=== PATIENT | male | born 1970 | race Caucasian/White ===

== ENCOUNTER 2018-08-22 13:21 | Outpatient (CLI) | payer MEDICARE, MEDICAID | END 2018-08-22 13:22 | disposition home or self-care (01) | LOC: ULT 13:21 | PROVIDERS: ATTEND Family Medicine | DX: J44.9 Chronic obstructive pulmonary disease, unspecified (principal); R53.83 Other fatigue; I08.1 Rheumatic disorders of both mitral and tricuspid valves | CPT/HCPCS: 93306 ==

== ENCOUNTER 2018-10-09 12:59 | Outpatient (CLI) | payer MEDICARE, MEDICAID ==
--- NOTE | 2018-10-09 13:30 | RAD ---
Frontal and lateral imaging of the chest: 10/09/2018 COMPARISON: 09/10/2018 HISTORY: Short of breath FINDINGS: There are coarse linear interstitial densities noted bilaterally. The right lung appears hy perinflated. There is volume loss involving the left hemithorax. There is mild blunting of the left costophrenic angle. There is patchy opacity within the inferior medial left lung base, which appears similar when compare d to the prior examination. IMPRESSION: Increased linear interstitial density and pulmonary hyperinflation suggests COPD. There i s superimposed volume loss involving the left hemithorax with blunting of the left costophrenic angle suggesting probable scar or less likely, small volume pleural fluid. Question prior surgery or trauma involving the left hemithorax with associated volume loss.
== END 2018-10-09 13:00 | disposition home or self-care (01) ==
LOC: RAD 12:59
PROVIDERS: ATTEND Internal Medicine Pulmonary Disease
DX: R06.00 Dyspnea, unspecified (principal); J98.4 Other disorders of lung
CPT/HCPCS: 71046

== ENCOUNTER 2019-04-25 18:54 | Inpatient (IN) | payer MEDICARE, MEDICAID ==
[2019-04-25] MEDS ORDERED: methylPREDNISolone Sod Succ/PF 125 MG/2 ML VIAL ONE (19:29)
[2019-04-25 19:39] LABS: #Eosinphils 0.1 thou/uL (0.0-0.7); #Lymphocytes 1.4 thou/uL (1.20-3.40); #Monocytes 0.8 thou/uL (0.11-0.59); #Neutrophils 8.4 thou/uL (1.40-6.50); %Basophils 0.2 % (0.0-1.0); %Eosinophils 0.8 % (0.0-10.0); %Lymphocytes 13.4 % (21.0-51.0); %Monocytes 7.4 % (0.0-10.0); %Neutrophils 78.3 % (42.0-75.0); Mean Platelet Volume 6.2 fL (7.4-10.4); Platelet Count 345 thou/uL (130-400); Red Blood Cell (RBC) Count 4.69 mill/uL (4.70-6.10); White Blood Cell (WBC) Count 10.7 thou/uL (4.8-10.8)
[2019-04-25 19:57] LABS: Bacteria/HPF None Seen HPF (None Seen); Bilirubin Negative (Negative); Blood, Urine Trace (Negative); Clarity Clear (Clear); Glucose, Urine (Dipstick) Normal (Negative); Leukocyte Negative Leu/uL (Negative); Mucous/LPF Rare LPF (<2+); Nitrite Negative (Negative); Protein, Urine (Dipstick) Negative (Neg-Trace); RBC/HPF 0-3 HPF (0-3); Squamous Epithelial None Seen HPF (0-3); Urobilinogen Normal mg/dL (Less than 2); WBC/HPF 0-3 HPF (0-3)
[2019-04-25 20:00] LABS: ALT (SGPT) 26 U/L (8-55); AST (SGOT) 24 U/L (5-34); Albumin 4.2 g/dL (3.5-5.0); Alkaline Phosphatase 91 U/L (40-110); BUN (Urea Nitrogen) 8 mg/dL (8.9-20.6); Bilirubin, Total 0.4 mg/dL (0.2-1.2); Calc. Creatinine Clearance 0 mL/min (70-130); Calcium 9.7 mg/dL (7.8-10.44); Estimated GFR-MDRD Greater than 90; Globulin 3.6 g/dL (2.4-3.5); Glucose 89 mg/dL (70-105); Magnesium 2.2 mg/dL (1.6-2.6); Protein, Total 7.8 g/dL (6.0-8.3)
--- NOTE | 2019-04-25 20:08 | RAD ---
FRONTAL RADIOGRAPH CHEST: 04/25/19 COMPARISON: 10/09/18 HISTORY: Shortness of breath. FINDINGS: Heart and mediastinal contours are stable. Increased linear interstitial density with pulmonary hyper inflation suggests COPD in the proper clinical setting, stable. Stable slight blunting of the left co stophrenic angle. Stable irregularity involving multiple lateral left sided ribs suggests old fractur es. IMPRESSION: Stable appearance of the chest as detailed above. Chest could be better assessed with PA and lateral imaging. POS: MAGALYS
[2019-04-25 20:13] LABS: Chloride 95 mmol/L (98-107); Potassium 4.6 mmol/L (3.5-5.1); Sodium 139 mmol/L (136-145)
[2019-04-25 20:16] LABS: Anion Gap 15 mmol/L (10-20); Carbon Dioxide 34 mmol/L (22-29)
[2019-04-25] MEDS ORDERED: Lactated Ringer's 1,000 ML IV SCH (23:30)
--- NOTE | 2019-04-26 00:39 | PDOC.FPRHP ---
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 He states at home he normally requires 3 L NC to sleep at night but had began requiring oxygen through the afternoon. Earlier this week started to with increased cough, green sputum production alerting him to be seen in the ED. He denies fevers. He is seen by Dr. Friend, last appt in October but is wanting to schedule an appt. He endorsed increased duoneb use, albuterol use. ED Course: In the ED pt was started on solumedrol, levaquin, and duonebs for a COPD exacerbation. CXR revealed chronic COPD changes, hyperinflation. BNP, trop negative. - Allergies/Adverse Reactions Allergies Allergy/AdvReac Type Severity Reaction Status Date / Time Penicillins Allergy Severe Verified 04/26/19 02:42 - Home Medications Medication Instructions Recorded Confirmed Type Albuterol Sulfate [Albuterol 8.5 gm IH 04/26/19 History Sulfate Hfa] Albuterol Sulfate [Ventolin Hfa] 2 puff INH Q4HR PRN 04/26/19 04/26/19 History Budesonide [Pulmicort Flexhaler] 2 puff INH BID 04/26/19 04/26/19 History Ipratropium/Albuterol Sulfate 3 ml NEB TID 04/26/19 04/26/19 History [Duoneb] Meloxicam 15 mg PO PRN PRN 04/26/19 04/26/19 History - History PMHx: L pneumonectomy in childhood, COPD, HLD PSHx: L pneumoenectomy, cholecystectomy, hernia repair FHx: non-contributory Social: history of 2 ppd smoking but states he quit 2 months ago, denies alcohol , drug use - Review of Systems General: denies: fever/chills, weight/appetite/sleep changes ENT: denies: nasal congestion, rhinorrhea Respiratory: reports: cough, congestion, shortness of breath Cardiovascular: denies: chest pain, palpitation Gastrointestinal: denies: nausea, vomiting, diarrhea, constipation Neurological: denies: numbness, syncope Psychological: denies: anxiety, depression - Vital signs BP: 140/106 HR: 106 RR: Tmax: 98.3 Pox: 81 % on RA Wt: 72.5 kg - Physical Exam Constitutional: NAD, awake, alert and oriented Neck: supple, FROM Heart: RRR, normal S1/S2, no murmurs/rubs/gallops -Lungs: Poor air movement, expiratory wheeze Abdomen: soft, non-tender Neurological: no focal deficit, CN II-XII intact Skin: no rash/lesions, good turgor, capillary refill <2 seconds Heme/Lymphatic: no purpura, no petechia Psychiatric: good judgment and insight FMR H&P: Results - Labs Result Diagrams: 04/26/19 05:29 04/26/19 05:29 Lab results: WBC 10.7 thou/uL (4.8-10.8) 04/25/19 19:25 Hgb 15.0 g/dL (14.0-18.0) 04/25/19 19:25 Hct 45.5 % (42.0-52.0) 04/25/19 19:25 MCV 97.0 fL (78.0-98.0) 04/25/19 19:25 Plt Count 345 thou/uL (130-400) 04/25/19 19:25 Neutrophils % 78.3 % (42.0-75.0) H 04/25/19 19:25 Sodium 139 mmol/L (136-145) 04/25/19 19:24 Potassium 4.6 mmol/L (3.5-5.1) 04/25/19 19:24 Chloride 95 mmol/L (98-107) L 04/25/19 19:24 Carbon Dioxide 34 mmol/L (22-29) H 04/25/19 19:24 BUN 8 mg/dL (8.9-20.6) L 04/25/19 19:24 Creatinine 0.77 mg/dL (0.7-1.3) 04/25/19 19:24 Glucose 89 mg/dL (70-105) 04/25/19 19:24 Lactic Acid 0.6 mmol/L (0.5-2.2) 04/25/19 19:25 Calcium 9.7 mg/dL (7.8-10.44) 04/25/19 19:24 Total Bilirubin 0.4 mg/dL (0.2-1.2) 04/25/19 19:24 AST 24 U/L (5-34) 04/25/19 19:24 ALT 26 U/L (8-55) 04/25/19 19:24 Alkaline Phosphatase 91 U/L (40-110) 04/25/19 19:24 B-Natriuretic Peptide Less than 10.0 pg/mL (0-100) 04/25/19 19:24 Serum Total Protein 7.8 g/dL (6.0-8.3) 04/25/19 19:24 Albumin 4.2 g/dL (3.5-5.0) 04/25/19 19:24 Urine Ketones Negative mg/dL (Negative) 04/25/19 19:37 Urine Blood Trace (Negative) A 04/25/19 19:37 Urine Nitrite Negative (Negative) 04/25/19 19:37 Ur Leukocyte Esterase Negative Jewel/uL (Negative) 04/25/19 19:37 Urine RBC 0-3 HPF (0-3) 04/25/19 19:37 Urine WBC 0-3 HPF (0-3) 04/25/19 19:37 Ur Squamous Epith Cells None Seen HPF (0-3) 04/25/19 19:37 Urine Bacteria None Seen HPF (None Seen) 04/25/19 19:37 - Radiology Interpretation Chest x-ray Status: image reviewed by me (Hyperinflation, no consolidations), report reviewed by me FMR H&P: A/P - Problem List (1) COPD exacerbation Current Visit: Yes Status: Acute Code(s): J44.1 - CHRONIC OBSTRUCTIVE PULMONARY DISEASE W (ACUTE) EXACERBATION (2) Hyperlipidemia Current Visit: Yes Status: Chronic Code(s): E78.5 - HYPERLIPIDEMIA, UNSPECIFIED (3) H/O pneumonectomy Current Visit: Yes Status: Chronic Code(s): Z98.890 - OTHER SPECIFIED POSTPROCEDURAL STATES; Z90.2 - ACQUIRED ABSENCE OF LUNG [PART OF] - Plan Pt is a 48 yo male here for COPD exacerbation: # COPD Exacerbation Hx of L pneumonectomy, previous COPD exacerbations. Followed by Dr. Friend. Pt should follow up on discharge. Given solumedrol in ED. Trop neg. BNP neg. - Start prednisone - Cont symbicort, duonebs - Cont levaquin # HLD - Continue home medication Fluids: LR 75 ml/hr Diet: HH DVT: Lovenox Code: Full Dispo: < 2 day stay FMR H&P: Upper Level - Plan Date/Time: 04/26/19 0035 IMoses MD, have evaluated this patient and agree with findings/plan as outlined by analysis intern resident. Pertinent changes/additions are listed here. Segundo Durán is a 48 year old M with a PMH of COPD, HLD who presented to the ED with a 2-3 day history of worsening dyspnea. States that he has had wheezing, productive cough and dyspnea. Last hospitalization for COPD was a couple years ago. Hx of left pneumonectomy when he was a child due to lung cancer. States that he his on O2 supplementation via NC at night normally. Has had In the ED, BP 142/95, HR 96, RR 18, T 97.6, O2 sat 96% on 3 L NC. Labs: D-dimer <0.27, WBC 10.7, Trop <0.01, BNP <10. Lactic acid 0.6. EKG showed NSR with short [place] interval, no ST changes. CXR showed increased linear interstitial density with pulmonary hyperinflation. Exam was significant for decrease air movement and bilateral expiratory wheezes. Admitting patient to inpatient medical for acute hypoxic respiratory failure 2/2 COPD exacerbation. Continue levaquin, duonebs, steroids. Continue O2 supplementation with goal of 92-94%, wean as tolerated. Anticipate hospital stay >48 hours. Please seen analysis intern note above for full H&P , which I have reviewed and agree with. Code status: Full Code.
[2019-04-26 01:18] VITALS: BMI 22.3
[2019-04-26] MEDS ORDERED: PROVENTIL INHALER 6.7 G (200 INHALATIONS) INH PRN (05:02)
[2019-04-26 05:53] LABS: #Lymphocytes 0.5 thou/uL (1.20-3.40); #Monocytes 0.1 thou/uL (0.11-0.59); #Neutrophils 4.8 thou/uL (1.40-6.50); %Basophils 0.1 % (0.0-1.0); %Eosinophils 0.1 % (0.0-10.0); %Lymphocytes 8.9 % (21.0-51.0); %Monocytes 1.5 % (0.0-10.0); %Neutrophils 89.5 % (42.0-75.0); Hemoglobin 13.9 g/dL (14.0-18.0); Mean Corpuscular HGB CONC 32.6 g/dL (32.0-36.0); Mean Corpuscular Hemoglobin 31.8 pg (27.0-31.0); Mean Corpuscular Volume 97.4 fL (78.0-98.0); Mean Platelet Volume 6.5 fL (7.4-10.4); Platelet Count 309 thou/uL (130-400); RBC Distribution Width 11.9 % (11.5-14.5); Red Blood Cell (RBC) Count 4.38 mill/uL (4.70-6.10); White Blood Cell (WBC) Count 5.3 thou/uL (4.8-10.8)
--- NOTE | 2019-04-26 05:59 | PDOC.FM ---
- Subjective Subjective: Pt reports a 2 week hx of worsening SOB and increased sputum production with his cough. Pt states his SOb is alleviated with nebulizer treatments and the steroids. C/o Pleuritic CP. - Objective MAR Reviewed: Yes Vital Signs & Weight: Vital Signs (12 hours) Temp Pulse Resp BP Pulse Ox 04/26/19 04:00 98.0 F 103 H 20 142/83 H 93 L 04/26/19 02:43 107 H 20 94 L 04/25/19 23:33 108 H 20 92 L 04/25/19 23:05 97.7 F 107 H 20 147/85 H 94 L 04/25/19 23:01 94 L Weight Weight 72.575 kg I&O: 04/24/19 04/25/19 04/26/19 06:59 06:59 06:59 Intake Total 1250 Output Total 700 Balance 550 Result Diagrams: 04/26/19 05:29 04/26/19 05:29 Phys Exam - Physical Examination Constitutional: NAD HEENT: PERRLA, moist MMs Neck: no nodes, no JVD Respiratory: wheezing present diminished breath sounds all lung silver. Good air movement on L-side. Cardiovascular: RRR, no significant murmur Gastrointestinal: soft, non-tender Musculoskeletal: no edema Neurological: non-focal, moves all 4 limbs Psychiatric: normal affect, A&O x 3 Skin: no rash, normal turgor Dx/Plan (1) COPD exacerbation Code(s): J44.1 - CHRONIC OBSTRUCTIVE PULMONARY DISEASE W (ACUTE) EXACERBATION Status: Acute (2) H/O pneumonectomy Code(s): Z98.890 - OTHER SPECIFIED POSTPROCEDURAL STATES; Z90.2 - ACQUIRED ABSENCE OF LUNG [PART OF] Status: Chronic (3) Hyperlipidemia Code(s): E78.5 - HYPERLIPIDEMIA, UNSPECIFIED Status: Chronic - Plan Plan: Pt is a 48 yo male here for COPD exacerbation: # Acute hypoxic respiratory failure 2/2 COPD Exacerbation Hx of L pneumonectomy, previous COPD exacerbations. Followed by Dr. Friend. Pt should follow up on discharge. Given solumedrol in ED. Trop neg. BNP neg. Baseline respiratory status is 3 L home O2 per NC at night. - Cont prednisone - Cont symbicort, duonebs - Cont levaquin # HLD - Continue home medication Fluids: LR 75 ml/hr Diet: HH DVT: Lovenox Code: Full Dispo: < 2 day stay Addendum - Attending - Attending Attestation Date/Time: 04/26/19 5248 I personally evaluated the patient and discussed the management with Dr. Martin. I agree with the History, Examination, Assessment and Plan documented above with any addition or exceptions noted below. Patient with acute hypoxic respiratory failure 2/2 copd exacerbation. Will continue nebs, steroids, antibiotics. Wean O2. Pt still has very diminished breath sounds but work of breathing is improved.
[2019-04-26 06:12] LABS: Anion Gap 11 mmol/L (10-20); BUN (Urea Nitrogen) 11 mg/dL (8.9-20.6); Calc. Creatinine Clearance 113 mL/min (70-130); Calcium 9.1 mg/dL (7.8-10.44); Carbon Dioxide 34 mmol/L (22-29); Chloride 96 mmol/L (98-107); Estimated GFR-MDRD Greater than 90; Glucose 150 mg/dL (70-105); Potassium 4.3 mmol/L (3.5-5.1); Sodium 137 mmol/L (136-145)
[2019-04-26] MEDS: Mometasone/Formoterol 120 PUFF INHALER INH SCH ×2 (06:31→19:41)
--- NOTE | 2019-04-26 08:07 | PDOC.BPN ---
- Brief Progress Note Date/Time: 04/26/19 0806 I personally evaluated the patient and discussed the management with Dr. Gomez at time of admission. H&P pending. I agree with the History, Examination, Assessment and Plan as discussed.
[2019-04-26] MEDS ORDERED: Non-Formulary Item 1 EACH (Budesonide [Pulmicort Flexhaler] 2 PUFF) INH SCH (09:00)
[2019-04-26] MEDS: Enoxaparin Sodium 40 MG/0.4 ML SYRINGE SC SCH (09:03)
[2019-04-26] MEDS: predniSONE 20 MG TAB PO SCH (09:03)
--- NOTE | 2019-04-27 06:26 | PDOC.FM ---
- Subjective Subjective: Pt states he walked around the floor last night and became very short of breath , which caused him to begin coughing. The cough causes his CP. He feels his lungs are "opening up more," since admission. - Objective MAR Reviewed: Yes Vital Signs & Weight: Vital Signs (12 hours) Temp Pulse Resp BP Pulse Ox 04/27/19 04:00 97.6 F 82 16 130/80 98 04/27/19 00:00 97.8 F 77 18 142/79 H 97 04/26/19 20:00 97.8 F 85 18 130/77 98 04/26/19 19:31 87 16 97 Weight Weight 72.575 kg I&O: 04/25/19 04/26/19 04/27/19 06:59 06:59 06:59 Intake Total 1250 4274 Output Total 1450 5900 Balance -200 -1626 Result Diagrams: 04/26/19 05:29 04/26/19 05:29 Phys Exam - Physical Examination Constitutional: NAD HEENT: PERRLA, moist MMs, sclera anicteric Neck: supple, full ROM Respiratory: wheezing present (L>R) Diminished breath sounds, R worse than L lung silver. Cardiovascular: RRR, no significant murmur, no rub Gastrointestinal: soft, non-tender, no distention, positive bowel sounds Musculoskeletal: no edema, pulses present Neurological: non-focal, normal sensation, moves all 4 limbs Psychiatric: normal affect, A&O x 3 Skin: no rash, normal turgor, cap refill <2 seconds Dx/Plan (1) Acute respiratory failure with hypoxia Code(s): J96.01 - ACUTE RESPIRATORY FAILURE WITH HYPOXIA Status: Acute (2) COPD exacerbation Code(s): J44.1 - CHRONIC OBSTRUCTIVE PULMONARY DISEASE W (ACUTE) EXACERBATION Status: Acute (3) H/O pneumonectomy Code(s): Z98.890 - OTHER SPECIFIED POSTPROCEDURAL STATES; Z90.2 - ACQUIRED ABSENCE OF LUNG [PART OF] Status: Chronic (4) Hyperlipidemia Code(s): E78.5 - HYPERLIPIDEMIA, UNSPECIFIED Status: Chronic - Plan Plan: Pt is a 48 yo male here for COPD exacerbation: # Acute hypoxic respiratory failure 2/2 COPD Exacerbation Hx of L pneumonectomy, previous COPD exacerbations. Followed by Dr. Friend. Pt should follow up on discharge. Given solumedrol in ED. Trop neg. BNP neg. Baseline respiratory status is 3 L home O2 per NC at night. Had been using up to 4 L NC throughout the day recently. Pt's O2 saturation drops to 70-80% with any type of exertion. - Cont prednisone - Cont symbicort, duonebs - Cont levaquin # COPD Exacerbation see above. # HLD - Continue home medication Fluids: LR 75 ml/hr Diet: HH DVT: Lovenox Code: Full Dispo: Stable, inpatient; > 2 day stay.
[2019-04-27] MEDS: Mometasone/Formoterol 120 PUFF INHALER INH SCH ×2 (07:38→20:48)
[2019-04-27] MEDS: Enoxaparin Sodium 40 MG/0.4 ML SYRINGE SC SCH (07:42)
[2019-04-27] MEDS: predniSONE 20 MG TAB PO SCH (07:42)
[2019-04-27 07:55] LABS: #Eosinphils 0.1 thou/uL (0.0-0.7); #Lymphocytes 2.8 thou/uL (1.20-3.40); #Monocytes 1.2 thou/uL (0.11-0.59); #Neutrophils 10.6 thou/uL (1.40-6.50); %Basophils 0.1 % (0.0-1.0); %Eosinophils 0.4 % (0.0-10.0); %Lymphocytes 18.9 % (21.0-51.0); %Monocytes 8.1 % (0.0-10.0); %Neutrophils 72.6 % (42.0-75.0); Mean Corpuscular HGB CONC 32.9 g/dL (32.0-36.0); Mean Corpuscular Hemoglobin 31.6 pg (27.0-31.0); Mean Platelet Volume 6.5 fL (7.4-10.4); Platelet Count 354 thou/uL (130-400); RBC Distribution Width 12.2 % (11.5-14.5); Red Blood Cell (RBC) Count 4.76 mill/uL (4.70-6.10); White Blood Cell (WBC) Count 14.6 thou/uL (4.8-10.8)
[2019-04-27 08:15] LABS: Anion Gap 12 mmol/L (10-20); BUN (Urea Nitrogen) 12 mg/dL (8.9-20.6); Calc. Creatinine Clearance 113 mL/min (70-130); Calcium 9.3 mg/dL (7.8-10.44); Carbon Dioxide 33 mmol/L (22-29); Chloride 97 mmol/L (98-107); Estimated GFR-MDRD Greater than 90; Glucose 114 mg/dL (70-105); Potassium 3.8 mmol/L (3.5-5.1); Sodium 138 mmol/L (136-145)
[2019-04-27] MEDS ORDERED: Iopamidol-370 76% 500 ML 1 ML ONE (12:52)
--- NOTE | 2019-04-27 13:12 | CT ---
EXAM: CT of the chest with contrast HISTORY: Shortness of breath and possible pneumonia COMPARISON: None TECHNIQUE: Multiple contiguous axial images were obtained in a CT the chest with contrast. Coronal an d sagittal reformats were performed. FINDINGS: HEART: Normal in size without focal cardiac abnormality MEDIASTINUM: No hilar or mediastinal lymphadenopathy. LUNGS: Subtle airspace opacities are scattered throughout the left lower lobe. There are 2 adjacent 4 mm pulmonary nodules in the inferior aspect of the right upper lobe. Scattered bronchiectasis is seen throughout both lungs. PLEURAL SPACE: No pneumothorax or pleural effusion. CHEST WALL SOFT TISSUES: Unremarkable OSSEOUS STRUCTURES: No acute abnormality. VISUALIZED SUBDIAPHRAGMATIC STRUCTURES: Unremarkable IMPRESSION: 1. Left lower lobe early infiltrate 2. Right upper lobe pulmonary nodules should be followed with a repeat chest CT in 6 months to ensure stability. 3. Bilateral bronchiectasis
--- NOTE | 2019-04-28 06:09 | PDOC.FM ---
- Subjective Subjective: Pt states he was able to walk a few laps on the floor yesterday. the lowest his O2 sats went was 86% with O2 NC on. He states he is feeling better. Pt had never been told about pulmonary nodules in the past. Denies chest pain. continues to have SOB, worse with exertion. Improving though. - Objective MAR Reviewed: Yes Vital Signs & Weight: Vital Signs (12 hours) Temp Pulse Resp BP Pulse Ox 04/28/19 04:38 97.7 F 74 18 118/64 95 04/28/19 00:26 97.6 F 77 16 120/72 96 04/27/19 20:46 83 20 92 L 04/27/19 20:27 97.9 F 79 16 128/77 96 04/27/19 20:20 92 L Weight Weight 72.575 kg I&O: 04/26/19 04/27/19 04/28/19 06:59 06:59 06:59 Intake Total 1250 4274 2500 Output Total 1450 5900 2455 Balance -200 -1626 45 Result Diagrams: 04/28/19 05:56 04/28/19 05:56 Phys Exam - Physical Examination Constitutional: NAD HEENT: PERRLA, moist MMs, sclera anicteric Neck: no nodes, no JVD, supple, full ROM Respiratory: wheezing present Diminished breath sounds diffusely, improved from previous exams. Cardiovascular: RRR, no rub Gastrointestinal: soft, non-tender, no distention, positive bowel sounds Musculoskeletal: no edema, pulses present Neurological: non-focal, moves all 4 limbs Psychiatric: normal affect, A&O x 3 Skin: no rash, normal turgor, cap refill <2 seconds Dx/Plan (1) Acute respiratory failure with hypoxia Code(s): J96.01 - ACUTE RESPIRATORY FAILURE WITH HYPOXIA Status: Acute (2) COPD exacerbation Code(s): J44.1 - CHRONIC OBSTRUCTIVE PULMONARY DISEASE W (ACUTE) EXACERBATION Status: Acute (3) H/O pneumonectomy Code(s): Z98.890 - OTHER SPECIFIED POSTPROCEDURAL STATES; Z90.2 - ACQUIRED ABSENCE OF LUNG [PART OF] Status: Chronic (4) Hyperlipidemia Code(s): E78.5 - HYPERLIPIDEMIA, UNSPECIFIED Status: Chronic - Plan Plan: Pt is a 48 yo male here for COPD exacerbation and LLL Pneumonia: # Acute hypoxic respiratory failure 2/2 COPD Exacerbation and LLL Pneumonia Hx of L pneumonectomy, previous COPD exacerbations. Followed by Dr. Friend. Pt should follow up on discharge. Given solumedrol in ED. Trop neg. BNP neg. Baseline respiratory status is 3 L home O2 per NC at night. Had been using up to 4 L NC throughout the day recently. Pt's O2 saturation drops to 70-80% with any type of exertion upon admission. Improving to Mid 80's with exertion. - Cont prednisone - Cont symbicort, duonebs - Cont levaquin # COPD Exacerbation see above. - Pt improving daily. - CT chest: LLL infiltrate, RUL pulmonary nodules, B bronchiectasis. Recommending repeat CT chest in 6 months to monitor pulmonary nodules. - Will need follow up out pt with Dr. Friend, pulm. # LLL Pneumonia - evidence on CT chest - Continue levaquin antibiotic therapy. # HLD - Continue home medication Fluids: LR 75 ml/hr Diet: HH DVT: Lovenox Code: Full Dispo: Stable, inpatient; > 2 day stay.
[2019-04-28 06:34] LABS: #Eosinphils 0.1 thou/uL (0.0-0.7); #Lymphocytes 2.4 thou/uL (1.20-3.40); #Neutrophils 7.6 thou/uL (1.40-6.50); %Basophils 0.3 % (0.0-1.0); %Eosinophils 0.7 % (0.0-10.0); %Lymphocytes 21.7 % (21.0-51.0); %Monocytes 9.2 % (0.0-10.0); Hemoglobin 13.6 g/dL (14.0-18.0); Mean Corpuscular HGB CONC 33.7 g/dL (32.0-36.0); Mean Corpuscular Hemoglobin 32.2 pg (27.0-31.0); Mean Corpuscular Volume 95.5 fL (78.0-98.0); Mean Platelet Volume 6.6 fL (7.4-10.4); Platelet Count 324 thou/uL (130-400); RBC Distribution Width 12.2 % (11.5-14.5); Red Blood Cell (RBC) Count 4.24 mill/uL (4.70-6.10); White Blood Cell (WBC) Count 11.2 thou/uL (4.8-10.8)
[2019-04-28 06:54] LABS: Anion Gap 11 mmol/L (10-20); BUN (Urea Nitrogen) 14 mg/dL (8.9-20.6); Calc. Creatinine Clearance 122 mL/min (70-130); Carbon Dioxide 36 mmol/L (22-29); Chloride 96 mmol/L (98-107); Estimated GFR-MDRD Greater than 90; Glucose 99 mg/dL (70-105); Potassium 3.4 mmol/L (3.5-5.1); Sodium 140 mmol/L (136-145)
[2019-04-28] MEDS: Mometasone/Formoterol 120 PUFF INHALER INH SCH ×2 (07:52→20:08)
[2019-04-28] MEDS: Enoxaparin Sodium 40 MG/0.4 ML SYRINGE SC SCH (07:56)
[2019-04-28] MEDS: predniSONE 20 MG TAB PO SCH (07:57)
[2019-04-29 05:33] LABS: #Basophils 0.1 thou/uL (0.0-0.2); #Eosinphils 0.1 thou/uL (0.0-0.7); #Lymphocytes 2.5 thou/uL (1.20-3.40); #Monocytes 0.9 thou/uL (0.11-0.59); #Neutrophils 7.2 thou/uL (1.40-6.50); %Basophils 0.9 % (0.0-1.0); %Eosinophils 0.6 % (0.0-10.0); %Monocytes 8.6 % (0.0-10.0); %Neutrophils 66.9 % (42.0-75.0); Hemoglobin 13.6 g/dL (14.0-18.0); Mean Corpuscular HGB CONC 32.6 g/dL (32.0-36.0); Mean Corpuscular Hemoglobin 31.4 pg (27.0-31.0); Mean Corpuscular Volume 96.1 fL (78.0-98.0); Mean Platelet Volume 6.8 fL (7.4-10.4); Platelet Count 325 thou/uL (130-400); RBC Distribution Width 12.3 % (11.5-14.5); Red Blood Cell (RBC) Count 4.34 mill/uL (4.70-6.10); White Blood Cell (WBC) Count 10.8 thou/uL (4.8-10.8)
[2019-04-29 05:58] LABS: Anion Gap 9 mmol/L (10-20); BUN (Urea Nitrogen) 14 mg/dL (8.9-20.6); Calc. Creatinine Clearance 119 mL/min (70-130); Carbon Dioxide 34 mmol/L (22-29); Chloride 98 mmol/L (98-107); Estimated GFR-MDRD Greater than 90; Glucose 123 mg/dL (70-105); Potassium 3.3 mmol/L (3.5-5.1); Sodium 138 mmol/L (136-145)
--- NOTE | 2019-04-29 06:36 | PDOC.FM ---
- Subjective Subjective: Pt states he feels slightly more SOB today than he did yesterday. C/O Left lower lateral chest pain when exerting and SOB. This is location of his pneumonia. Cough still present. Pt SOB with minimal exertion. - Objective MAR Reviewed: Yes Vital Signs & Weight: Vital Signs (12 hours) Temp Pulse Resp BP Pulse Ox 04/29/19 04:19 97.5 F L 68 16 129/79 95 04/29/19 00:01 98 F 98 16 128/81 98 04/28/19 20:47 100 04/28/19 20:46 97.4 F L 95 16 144/82 H 100 04/28/19 20:08 81 16 98 Weight Weight 72.575 kg I&O: 04/27/19 04/28/19 04/29/19 06:59 06:59 06:59 Intake Total 4274 2500 1300 Output Total 5900 4255 4480 Balance -1626 -1755 -3180 Result Diagrams: 04/29/19 05:05 04/29/19 05:05 Phys Exam - Physical Examination Constitutional: NAD HEENT: PERRLA, moist MMs, sclera anicteric Neck: no nodes, no JVD, full ROM Respiratory: wheezing present Diminished breath sounds, improved from yesterday's exam though. Cardiovascular: RRR, no significant murmur, no rub Gastrointestinal: soft, non-tender, no distention, positive bowel sounds Musculoskeletal: no edema, pulses present Neurological: non-focal, normal sensation, moves all 4 limbs Psychiatric: normal affect, A&O x 3 Skin: no rash, normal turgor, cap refill <2 seconds Dx/Plan (1) Acute respiratory failure with hypoxia Code(s): J96.01 - ACUTE RESPIRATORY FAILURE WITH HYPOXIA Status: Acute (2) COPD exacerbation Code(s): J44.1 - CHRONIC OBSTRUCTIVE PULMONARY DISEASE W (ACUTE) EXACERBATION Status: Acute (3) H/O pneumonectomy Code(s): Z98.890 - OTHER SPECIFIED POSTPROCEDURAL STATES; Z90.2 - ACQUIRED ABSENCE OF LUNG [PART OF] Status: Chronic (4) Hyperlipidemia Code(s): E78.5 - HYPERLIPIDEMIA, UNSPECIFIED Status: Chronic - Plan Plan: Pt is a 48 yo male here for COPD exacerbation and LLL Pneumonia: # Acute hypoxic respiratory failure 2/2 COPD Exacerbation and LLL Pneumonia Hx of L pneumonectomy, previous COPD exacerbations. Followed by Dr. Friend. Pt should follow up on discharge. Given solumedrol in ED. Trop neg. BNP neg. Baseline respiratory status is 3 L home O2 per NC at night. Had been using up to 4 L NC throughout the day recently. Pt's O2 saturation drops to 70-80% with any type of exertion upon admission. Improving to Mid 80's with exertion. - Cont prednisone - Cont symbicort, duonebs - Cont levaquin # COPD Exacerbation see above. - Pt improving daily. - CT chest: LLL infiltrate, RUL pulmonary nodules, B bronchiectasis. Recommending repeat CT chest in 6 months to monitor pulmonary nodules. - Will need follow up out pt with Dr. Friend, pulm. - continue symbicort # LLL Pneumonia - evidence on CT chest - Continue levaquin antibiotic therapy. # HLD - Continue home medication Fluids: LR 75 ml/hr Diet: HH DVT: Lovenox Code: Full Dispo: Stable, inpatient; > 2 day stay.
[2019-04-29] MEDS ORDERED: Potassium Chloride 20 MEQ TAB PO SCH (06:45)
[2019-04-29] MEDS: Mometasone/Formoterol 120 PUFF INHALER INH SCH ×2 (07:35→19:16)
[2019-04-29] MEDS: Enoxaparin Sodium 40 MG/0.4 ML SYRINGE SC SCH (08:27)
[2019-04-29] MEDS: predniSONE 20 MG TAB PO SCH (08:27)
[2019-04-29] MEDS ORDERED: Ipratropium Oral Inhaler INH PRN (11:44)
--- NOTE | 2019-04-29 11:54 | PRG ---
DATE OF SERVICE: 04/29/2019 I have read the note and discussed the case with Dr. Rosalinda Martin and agree with her assessment and plan. Mr. Durán is a pleasant 48-year-old man, who was admitted 4 days ago with an exacerbation of COPD. He prior to admission had a significant pack-year history of smoking and quit smoking approximately 1 to 2 weeks ago. He has been treated with IV fluids, breathing treatments, and prednisone and looks and feels much better this morning. He already sees Dr. Friend as an outpatient, has been encouraged to follow up with him after this hospitalization. His admission diagnosis was a COPD exacerbation and he has responded well to treatment. He is applauded for discontinuing smoking. He is encouraged to continue with this. [place] [address], hemoglobin 15.0, hematocrit 45.5 with an MCV of 97. His chemistries, sodium was 139, potassium 4.6, chloride 95, bicarb 34, BUN 8, creatinine is 0.77. A chest CT revealed a left lower lobe infiltrate as well as right upper lobe pulmonary nodules. I have suggested these nodules be followed with a repeat chest CT in about 6 months. He also has bilateral bronchiectasis. In the event, clinically, Mr. Durán has improved and was likely ready for discharge in a day or two. Job ID: [id number]
[2019-04-29 12:26] LABS: Actual Bicarbonate (HCO3a) 31.5 mEq/L (22-28); Base Excess (BEa) 4.9 mEq/L (-2.0 to +3.0); CO2 Tension 53.7 mmHg (35.0-45.0); Calcium, Ionized 1.21 mmol/L (1.12-1.30); Hemoglobin (Hb) 15.1 g/dL (14.0-18.0); O2 Tension (PaO2) 62.4 mmHg (80.0-100.0); Potassium - ABG Lab 4.67 mmol/L (3.70-5.30); pH, Arterial 7.39 (7.35-7.45)
[2019-04-29 12:27] LABS: ALV-art Gradient 20.205 (0-20); Puncture Site LR
[2019-04-30 05:37] LABS: #Eosinphils 0.1 thou/uL (0.0-0.7); #Lymphocytes 2.5 thou/uL (1.20-3.40); #Monocytes 1.2 thou/uL (0.11-0.59); #Neutrophils 6.8 thou/uL (1.40-6.50); %Basophils 0.1 % (0.0-1.0); %Eosinophils 1.1 % (0.0-10.0); %Lymphocytes 23.8 % (21.0-51.0); %Monocytes 11.3 % (0.0-10.0); %Neutrophils 63.7 % (42.0-75.0); Hemoglobin 13.8 g/dL (14.0-18.0); Mean Corpuscular HGB CONC 31.1 g/dL (32.0-36.0); Mean Corpuscular Hemoglobin 30.2 pg (27.0-31.0); Mean Platelet Volume 6.9 fL (7.4-10.4); Platelet Count 346 thou/uL (130-400); RBC Distribution Width 12.5 % (11.5-14.5); Red Blood Cell (RBC) Count 4.57 mill/uL (4.70-6.10); White Blood Cell (WBC) Count 10.6 thou/uL (4.8-10.8)
[2019-04-30 05:49] LABS: Anion Gap 10 mmol/L (10-20); BUN (Urea Nitrogen) 15 mg/dL (8.9-20.6); Calc. Creatinine Clearance 116 mL/min (70-130); Calcium 9.1 mg/dL (7.8-10.44); Carbon Dioxide 35 mmol/L (22-29); Chloride 98 mmol/L (98-107); Estimated GFR-MDRD Greater than 90; Glucose 92 mg/dL (70-105); Potassium 3.7 mmol/L (3.5-5.1); Sodium 139 mmol/L (136-145)
--- NOTE | 2019-04-30 06:36 | PDOC.FM ---
- Subjective Subjective: Pt c/o LLL chest pain that was exacerbated by deep breathing overnight. Pt states he is tolerating exertion much better than upon admission and walked several laps around the floor overnight. - Objective MAR Reviewed: Yes Vital Signs & Weight: Vital Signs (12 hours) Temp Pulse Resp BP BP Pulse Ox 04/30/19 04:00 97.6 F 87 18 146/94 H 97 04/30/19 01:33 97.5 F L 94 18 134/92 H 94 L 04/29/19 20:45 93 L 04/29/19 20:37 109 H 12 140/88 91 L 04/29/19 19:15 16 Weight Weight 72.575 kg I&O: 04/28/19 04/29/19 04/30/19 06:59 06:59 06:59 Intake Total 2500 1300 2500 Output Total 4255 4480 5200 Balance -7145 -8150 -0990 Result Diagrams: 04/30/19 04:57 04/30/19 04:57 Phys Exam - Physical Examination Constitutional: NAD HEENT: moist MMs, sclera anicteric Neck: no nodes, no JVD, supple, full ROM Respiratory: wheezing present Diffuse expiratory wheezing with diminished breath sounds. Cardiovascular: RRR, no significant murmur, no rub Gastrointestinal: soft, non-tender, no distention, positive bowel sounds Musculoskeletal: no edema, pulses present Neurological: non-focal, normal sensation, moves all 4 limbs Psychiatric: normal affect, A&O x 3 Skin: no rash, normal turgor, cap refill <2 seconds Dx/Plan (1) Acute respiratory failure with hypoxia Code(s): J96.01 - ACUTE RESPIRATORY FAILURE WITH HYPOXIA Status: Acute (2) COPD exacerbation Code(s): J44.1 - CHRONIC OBSTRUCTIVE PULMONARY DISEASE W (ACUTE) EXACERBATION Status: Acute (3) H/O pneumonectomy Code(s): Z98.890 - OTHER SPECIFIED POSTPROCEDURAL STATES; Z90.2 - ACQUIRED ABSENCE OF LUNG [PART OF] Status: Chronic (4) Hyperlipidemia Code(s): E78.5 - HYPERLIPIDEMIA, UNSPECIFIED Status: Chronic - Plan Plan: Pt is a 48 yo male here for COPD exacerbation and LLL Pneumonia: # Acute hypoxic respiratory failure 2/2 COPD Exacerbation and LLL Pneumonia, improving Hx of L pneumonectomy, previous COPD exacerbations. Followed by Dr. Friend. Pt should follow up on discharge. Given solumedrol in ED. Trop neg. BNP neg. Baseline respiratory status is 3 L home O2 per NC at night. Had been using up to 4 L NC throughout the day recently. Pt's O2 saturation drops to 70-80% with any type of exertion upon admission. Improving to Mid 80's- low 90's with exertion. Pt not at baseline respiratory status, but improving. - Cont prednisone - Cont symbicort, duonebs - Cont levaquin # COPD Exacerbation see above. - Pt improving daily. - CT chest: LLL infiltrate, RUL pulmonary nodules, B bronchiectasis. Recommending repeat CT chest in 6 months to monitor pulmonary nodules. - Will need follow up out pt with Dr. Friend, pulm. - continue symbicort, added dulera inhaler BID # LLL Pneumonia - evidence on CT chest - Continue levaquin antibiotic therapy. - CP LLL. added 1 g tylenol for pain control. # HLD - Continue home medication Fluids: LR 75 ml/hr Diet: HH DVT: Lovenox Code: Full Dispo: Stable, inpatient; > 2 day stay.
[2019-04-30] MEDS: Mometasone/Formoterol 120 PUFF INHALER INH SCH (07:04)
[2019-04-30] MEDS ORDERED: Acetaminophen 500 MG TAB PO SCH (07:45)
[2019-04-30] MEDS: predniSONE 20 MG TAB PO SCH (07:58)
[2019-04-30] MEDS: Enoxaparin Sodium 40 MG/0.4 ML SYRINGE SC SCH (07:59)
--- NOTE | 2019-04-30 11:01 | PRG ---
DATE OF SERVICE: 04/30/2019 Mr. Durán is looking and feeling better and improved. He does have an abnormal ABG showing some CO2 retention and a room air pO2 of 62.4. He is ready to sworn off cigarettes. He will be discharged on his usual Symbicort and we will add Spiriva inhaler. Job ID: [id number]
[2019-04-30 11:58] VITALS: BP 134/83; TEMP 98.1
--- NOTE | 2019-05-01 00:23 | DIS ---
DATE OF ADMISSION: 04/25/2019 DATE OF DISCHARGE: 04/30/2019 RESIDENT: Rosalinda Martin DO ADMITTING ATTENDING: Benito Hinkle MD DISCHARGE ATTENDING: Filiberto Garnica MD CONSULTS: None. PROCEDURES PERFORMED: CT scan of chest which showed a left lower lobe early infiltrate, right upper lobe pulmonary nodules that should be followed with repeat CT scan in 6 months to ensure stability and bilateral bronchiectasis. PRIMARY DIAGNOSES: 1. Acute hypoxic respiratory failure secondary to chronic obstructive pulmonary disease exacerbation and left lower lobe pneumonia. 2. Chronic obstructive pulmonary disease exacerbation. 3. Left lower lobe pneumonia. 4. Hyperlipidemia. DISCHARGE MEDICATIONS: 1. Albuterol sulfate two puffs inhaled q.4 hours. 2. DuoNeb 3 mL nebulized t.i.d. p.r.n. 3. Pulmicort inhaler two puffs inhaled b.i.d. 4. Levofloxacin 750 p.o. daily for 5 more days, 5 tabs total. 5. Meloxicam 15 mg p.o. p.r.n. 6. Spiriva Respimat inhaler two puffs inhaled daily. No discontinued medications. HISTORY OF PRESENT ILLNESS/HOSPITAL COURSE: Mr. Durán is a 48-year-old male with a history of COPD and hyperlipidemia, has been increasingly short of breath over the last two weeks with increased cough and sputum production, requiring more oxygen than his baseline which is 3 L per nasal cannula only at nighttime. He had increased the using about 4 L even during the daytime. His PCP is Dr. Guzman. He went to be evaluated by Dr. Schofield and was found to have an oxygen saturation in the high 70s at clinic, was given a DuoNeb and sent to the emergency department. The patient was hypoxic upon arrival and required DuoNeb, antibiotics, and prednisone for COPD exacerbation. At first, he had very few breath sounds if any diffusely. This gradually opened up daily to where his breath sounds and increased the wheezing, but started to show good air movement throughout the lungs. CT scan of the chest showed left lower lobe infiltrate suggestive of pneumonia, right upper lobe nodules which will need to be repeated in 6 months to track these nodules and bilateral bronchiectasis. The patient was treated with Levaquin 750 p.o. once daily, DuoNeb, and prednisone 40 mg for 5 days. Kept his Symbicort on and added Spiriva for discharge, so that patient gets LAMA/LABA and inhaled corticosteroid therapy. The patient was stable upon discharge and felt safe to go home. Oxygen saturations closer to baseline and his exertional dyspnea was much better. DISCHARGE INSTRUCTIONS: 1. Location: Home. 2. Diet: Heart healthy. 3. Activity: As tolerated. 4. Followup: Follow up with Dr. Guzman, primary care physician in 3 days, and Dr. Friend the full service supervisor in 1 week. Job ID: [id number] [facility]
== END 2019-04-30 13:09 | disposition home or self-care (01) | DRG 193 ==
LOC: ERS 18:54 → OBSVTOIN 22:53 → SURG A 22:53
PROVIDERS: ADMIT Family Medicine; ATTEND Family Medicine
DX: J18.9 Pneumonia, unspecified organism (principal); J96.01 Acute respiratory failure with hypoxia; J44.1 Chronic obstructive pulmonary disease with (acute) exacerbation; J44.0 Chronic obstructive pulmonary disease with (acute) lower respiratory infection; E78.5 Hyperlipidemia, unspecified; Z85.9 Personal history of malignant neoplasm, unspecified; Z90.49 Acquired absence of other specified parts of digestive tract; Z87.891 Personal history of nicotine dependence; Z88.0 Allergy status to penicillin
CPT/HCPCS: 36415; 71045; 71260; 80048; 80053; 81003; 81015; 82805; 83605; 83735; 83880; 84484; 85025; 85379; 93005; 94640; 96361; 96365; 96375; J1650; J1956; J2930; J7512; J7620; Q9967

== ENCOUNTER 2019-11-23 06:29 | Inpatient (IN) | payer MEDICARE, MEDICAID, OTHER ==
[2019-11-23] MEDS ORDERED: Magnesium 2 GM/50 ML BAG (IN WATER) ONE (06:50)
[2019-11-23 08:02] LABS: #Eosinphils 0.1 thou/uL (0.0-0.7); #Lymphocytes 0.7 thou/uL (1.20-3.40); #Monocytes 0.4 thou/uL (0.11-0.59); #Neutrophils 10.6 thou/uL (1.40-6.50); %Eosinophils 0.4 % (0.0-10.0); %Monocytes 3.4 % (0.0-10.0); %Neutrophils 90.2 % (42.0-75.0); Hemoglobin 14.4 g/dL (14.0-18.0); Mean Corpuscular HGB CONC 31.2 g/dL (32.0-36.0); Mean Corpuscular Volume 99.3 fL (78.0-98.0); Mean Platelet Volume 6.8 fL (7.4-10.4); Platelet Count 348 thou/uL (130-400); RBC Distribution Width 11.5 % (11.5-14.5); Red Blood Cell (RBC) Count 4.65 mill/uL (4.70-6.10); White Blood Cell (WBC) Count 11.8 thou/uL (4.8-10.8)
[2019-11-23 08:26] LABS: ALT (SGPT) 23 U/L (8-55); AST (SGOT) 20 U/L (5-34); Albumin 4.2 g/dL (3.5-5.0); Alkaline Phosphatase 96 U/L (40-110); BUN (Urea Nitrogen) 9 mg/dL (8.9-20.6); Bilirubin, Total 0.4 mg/dL (0.2-1.2); Calc. Creatinine Clearance 0 mL/min (70-130); Calcium 9.1 mg/dL (7.8-10.44); Estimated GFR-MDRD Greater than 90; Globulin 3.5 g/dL (2.4-3.5); Glucose 122 mg/dL (70-105); Magnesium 3.6 mg/dL (1.6-2.6); Protein, Total 7.7 g/dL (6.0-8.3)
[2019-11-23 08:35] LABS: Anion Gap 13 mmol/L (10-20); Carbon Dioxide 35 mmol/L (22-29); Chloride 96 mmol/L (98-107); Potassium 4.4 mmol/L (3.5-5.1); Sodium 140 mmol/L (136-145)
[2019-11-23 08:47] LABS: SARS-CoV-2 NAA Rapid Test Not Detected (NotDetected)
--- NOTE | 2019-11-23 09:38 | RAD ---
PORTABLE CHEST: HISTORY: Shortness of breath. COMPARISON: 04/25/2019 study. FINDINGS: Heart size is borderline. There are chronic lung changes seen. Slight increased parenchymal density now present in the right lower lobe and some increased blunting to the left costophrenic angle. Jose Juan e minimally more prominent parenchymal changes in the left mid lung field. IMPRESSION: Some minimally increased parenchymal lung changes in the right mid lung field and left mid lung field superimposed on chronic change. I cannot definite exclude these as early infiltrative changes. Lef t-sided pleural changes have been present on the prior examination. They appear slightly increased a s compared to the prior study. POS: OFF
--- NOTE | 2019-11-23 10:12 | PDOC.FPRHP ---
- History of Present Illness Chief Complaint: SOB History of Present Illness: Mr. Durán is a 49 yo man with PMH of COPD who presents to the ED for SOB. He reports that he began feeling short of breath 2 days ago. He has also experienced headache, difficulty sleeping, change in sputum color, and diaphoresis. He reports having similar symptoms with past exacerbations. He denies fever. Reports that he uses oxygen at home, 4L while sleeping and 3L during the day. ED Course: Satting in low 80s on arrival to ED with 4 L Given levoquin, albuterol, steroids, and mag in ED Started on BiPAP - Allergies/Adverse Reactions Allergies Allergy/AdvReac Type Severity Reaction Status Date / Time Penicillins Allergy Severe Verified 04/26/19 02:42 - Home Medications Medication Instructions Recorded Confirmed Type Albuterol Sulfate [Ventolin Hfa] 2 puff INH Q4HR PRN 04/26/19 11/23/19 History Budesonide [Pulmicort Flexhaler] 2 puff INH BID 04/26/19 11/23/19 History Ipratropium/Albuterol Sulfate 3 ml NEB TID 04/26/19 11/23/19 History [DuoNeb] Tiotropium [place] [Spiriva 2 inh IH DAILY #1 inhaler 04/30/19 11/23/19 Rx Respimat] - History PMHx: COPD PSHx: cholecystectomy FHx: Father: heart disease; Mother: brain cancer; Grandfather: DM Social: Lives at home with son and father; used to work as a cook, now on disability; smoked 1ppd for 25 years, cut back to 1/2 ppd 3 years ago, reports that he quit smoking 2 weeks ago. Denies alcohol and other drugs. - Review of Systems General: reports: weight/appetite/sleep changes. denies: fever/chills Eyes: denies: eye pain, vision changes ENT: reports: nasal congestion, rhinorrhea Respiratory: reports: cough, shortness of breath Cardiovascular: denies: chest pain, edema Gastrointestinal: denies: nausea, vomiting, diarrhea, constipation, GI bleeding Genitourinary: denies: dysuria, polyuria Skin: denies: rashes, lesions Musculoskeletal: denies: pain, swelling Neurological: denies: numbness, weakness Psychological: denies: anxiety, depression - Vital signs BP: 142/85 HR: 90 RR: 19 Tmax: 98.4 Pox: 99% on BiPAP Wt: 72.6 - Physical Exam Constitutional: awake, alert and oriented -Constitutional: On BiPAP HEENT: normocephalic and atraumatic, PERRLA, grossly normal vision, grossly normal hearing Neck: supple, FROM Heart: RRR, normal S1/S2, no murmurs/rubs/gallops, no edema -Lungs: Wheezing heard in all lung islver Abdomen: soft, non-tender, bowel sounds present Musculoskeletal: normal structure, ROM grossly normal Neurological: no focal deficit, normal sensation Skin: no rash/lesions, no jaundice Heme/Lymphatic: no unusual bruising or bleeding, no purpura Psychiatric: normal mood and affect, good judgment and insight, intact recent and remote memory FMR H&P: Results - Labs Result Diagrams: 11/23/19 07:35 11/23/19 07:35 Lab results: WBC 11.8 thou/uL (4.8-10.8) H 11/23/19 07:35 Hgb 14.4 g/dL (14.0-18.0) 11/23/19 07:35 Hct 46.1 % (42.0-52.0) 11/23/19 07:35 MCV 99.3 fL (78.0-98.0) H 11/23/19 07:35 Plt Count 348 thou/uL (130-400) 11/23/19 07:35 Neutrophils % 90.2 % (42.0-75.0) H 11/23/19 07:35 Sodium 140 mmol/L (136-145) 11/23/19 07:35 Potassium 4.4 mmol/L (3.5-5.1) 11/23/19 07:35 Chloride 96 mmol/L (98-107) L 11/23/19 07:35 Carbon Dioxide 35 mmol/L (22-29) H 11/23/19 07:35 BUN 9 mg/dL (8.9-20.6) 11/23/19 07:35 Creatinine 0.76 mg/dL (0.7-1.3) 11/23/19 07:35 Glucose 122 mg/dL (70-105) H 11/23/19 07:35 Lactic Acid 0.7 mmol/L (0.5-2.2) 11/23/19 07:35 Calcium 9.1 mg/dL (7.8-10.44) 11/23/19 07:35 Total Bilirubin 0.4 mg/dL (0.2-1.2) 11/23/19 07:35 AST 20 U/L (5-34) 11/23/19 07:35 ALT 23 U/L (8-55) 11/23/19 07:35 Alkaline Phosphatase 96 U/L (40-110) 11/23/19 07:35 B-Natriuretic Peptide Less than 10.0 pg/mL (0-100) 11/23/19 07:35 Serum Total Protein 7.7 g/dL (6.0-8.3) 11/23/19 07:35 Albumin 4.2 g/dL (3.5-5.0) 11/23/19 07:35 - Radiology Interpretation Chest x-ray Status: image reviewed by me, report reviewed by me Additional comment: Some minimally increased parenchymal lung changes in the right mid lung field and left mid lung field superimposed on chronic change; cannot exclude early infiltrative changes FMR H&P: A/P - Problem List (1) Acute respiratory failure with hypoxia Current Visit: No Status: Acute Code(s): J96.01 - ACUTE RESPIRATORY FAILURE WITH HYPOXIA (2) COPD exacerbation Current Visit: No Status: Acute Code(s): J44.1 - CHRONIC OBSTRUCTIVE PULMONARY DISEASE W (ACUTE) EXACERBATION - Plan 49 yo man with PMH history of COPD being admitted for acute hypoxic respiratory failure 2/2 to COPD exacerbation Acute hypoxic respiratory failure 2/2 to COPD exacerbation -s/p steroids, albuterol, mag, and levoquin in ED and started on BiPAP; improved breathing, satting in 90s -Prednisone x5 days; duonebs q4hr scheduled -Chest xray concerning for early infiltrates; pt reports green sputum production -Blood cultures obtained -Procal ordered -will start doxycycline tomorrow COPD -home meds Tobacco use -pt reports last cigarette was 2 weeks ago Code: Full Diet: HH Fluids: 110 ml/hr PPx: Lovenox PCP: Timo Dispo: LOS >48 hrs FMR H&P: Upper Level - Plan Date/Time: 11/23/19 1011 I, [Parul Mckeon], have evaluated this patient and agree with findings/plan as outlined by international account manager resident. Pertinent changes/additions are listed here. 49 yo M with COPD on 4L baseline and hx of left lower lunb lobectomy presented to ER SOB. Had worsened this morning and was requiring more than baseline oxygen and sxs unimproved with his home duonebs. In the ER he was found to be hypoxic to 88% on started on Bipap. COV negative. He denies fevers, chills, recently quit smoking 2 weeks ago. No recent travel. He is currently on Bipap and feels much better. Was given 750mg levaquin, 2gm MgS and 1duoneb treatment. VS: 124/82mmHg, 92bpm, 18RR/min, 96.7F, 96% on Bipap PE: Gen- NAD, on Bipap CV-RRR Resp: Dec breath sounds throughout, no resp. distress Abd: Soft, ND, NT Extrem:Active ROM Labs: WBC 11.8 N% 90.2, no bands Na 140 K 4.4 Cl 96 HCO3 35 Agap 9 BNP <10 Trop 0.022 EKG: Sinus tachycardia, no ST/T wave changes CXR: Minimally increased parenchymal lung changes in right mid lung field & left lung superimposed chronic changes. Possible early infiltrative changes. Left sided pleural changes present on prior exam. #Acute Hypoxic Respiratory Failure 2/2 COPD exacerbation -88% on 4L, now on Bipap. S/p 2g MgS, 750mg levaquin and 1 duoneb treatment. Breathing status much improved. -pCO2 35, could be from chronic retention. No ABG obtained in ER, will not obtain now since has been on Bipap for quite some time and breathing improved -CXR with early infiltrate, mild elevation in WBC of 11.8. s/p levaquin, start on doxycycline tomorrow. Procal and BCx obtained. -5 day pred course -ASHLEY duonebs [id number], can space out as needed -mIVF while NPO #COPD -Continue home meds -Continuing encouraging tobacco cessation See international account manager note for the rest of chronic problems. code: Full LOS: >48 hours abx: s/p levaquin, continue doxy Addendum - Attending - Attending Attestation Date/Time: 11/23/192100 I personally evaluated the patient and discussed the management with Dr. Jordan/Mike. H&P repeated by me I agree with the History, Examination, Assessment and Plan documented above with any addition or exceptions noted below. COPD Exac with acute on chronic hypoxic resp failure- on BIPAP in ER and improved after steroids, nebs, mg. Expect to be able to wean to home O2 in the next 24 hours Possible early infliltrate- s/p levaquin. Procal neg-
[2019-11-23] MEDS ORDERED: Ondansetron ODT 4 MG TAB PO PRN (10:13)
[2019-11-23] MEDS ORDERED: Ondansetron PF 4 MG/2 ML Vial IVP PRN ×2 (10:13→10:18)
[2019-11-23] MEDS ORDERED: Acetaminophen 325 MG TAB PO PRN (10:18)
[2019-11-23] MEDS ORDERED: Ondansetron ODT 4 MG TAB SL PRN (10:18)
[2019-11-23 10:24] VITALS: BMI 22.3
[2019-11-23] MEDS: Nicotine 14 MG PATCH TD SCH (12:02)
[2019-11-23] MEDS: Lactated Ringer's 1,000 ML IV SCH ×2 (12:02→20:58)
[2019-11-23] MEDS: Acetaminophen 325 MG TAB PO PRN (12:03)
[2019-11-23] MEDS ORDERED: predniSONE 20 MG TAB PO SCH (12:45)
[2019-11-23 13:59] LABS: Troponin I 0.016 ng/mL (< 0.028)
[2019-11-23] MEDS ORDERED: Albuterol Sulfate 2.5 mg/3 ml Neb NEB PRN (18:51)
[2019-11-23] MEDS ORDERED: Ipratropium Bromide 2.5 ml Neb NEB SCH (19:00)
[2019-11-24 04:01] LABS: #Lymphocytes 0.6 thou/uL (1.20-3.40); #Monocytes 0.6 thou/uL (0.11-0.59); #Neutrophils 7.1 thou/uL (1.40-6.50); %Basophils 0.4 % (0.0-1.0); %Lymphocytes 7.1 % (21.0-51.0); %Monocytes 6.9 % (0.0-10.0); %Neutrophils 85.5 % (42.0-75.0); Hemoglobin 12.7 g/dL (14.0-18.0); Mean Corpuscular HGB CONC 31.5 g/dL (32.0-36.0); Mean Corpuscular Hemoglobin 30.8 pg (27.0-31.0); Mean Platelet Volume 7.1 fL (7.4-10.4); Platelet Count 346 thou/uL (130-400); RBC Distribution Width 11.4 % (11.5-14.5); Red Blood Cell (RBC) Count 4.11 mill/uL (4.70-6.10); White Blood Cell (WBC) Count 8.3 thou/uL (4.8-10.8)
[2019-11-24 04:21] LABS: BUN (Urea Nitrogen) 10 mg/dL (8.9-20.6); Calc. Creatinine Clearance 133 mL/min (70-130); Calcium 9.2 mg/dL (7.8-10.44); Estimated GFR-MDRD Greater than 90; Glucose 127 mg/dL (70-105)
[2019-11-24 04:31] LABS: Anion Gap 12 mmol/L (10-20); Carbon Dioxide 33 mmol/L (22-29); Chloride 98 mmol/L (98-107); Potassium 4.4 mmol/L (3.5-5.1); Sodium 139 mmol/L (136-145)
[2019-11-24] MEDS: Lactated Ringer's 1,000 ML IV SCH ×3 (05:30→23:15)
--- NOTE | 2019-11-24 06:35 | PDOC.FM ---
- Subjective Subjective: Patient doing well this morning. Reports he tried bipap again last night and it makes him cough and "hack" so he went back to oxygen with NC. He states his breathing is markedly improved from yesterday but not back at baseline. - Objective Vital Signs & Weight: Vital Signs (12 hours) Temp Pulse Resp Pulse Ox 11/24/19 03:39 98.4 F 11/24/19 02:30 14 11/23/19 23:28 97.8 F 11/23/19 20:00 96 11/23/19 19:39 98.0 F 11/23/19 18:37 89 16 96 Weight Weight 72.6 kg Most Recent Monitor Data Heart Rate from ECG 74 NIBP 131/75 NIBP BP-Mean 93 Respiration from ECG 16 SpO2 94 I&O: 11/22/19 11/23/19 11/24/19 06:59 06:59 06:59 Intake Total 1900 Output Total 3800 Balance -1900 Result Diagrams: 11/24/19 03:28 11/24/19 03:28 Phys Exam - Physical Examination Constitutional: NAD HEENT: moist MMs, sclera anicteric Neck: supple, full ROM Respiratory: no wheezing decreased breath sounds Cardiovascular: RRR, no significant murmur Gastrointestinal: soft, non-tender Musculoskeletal: no edema, pulses present Neurological: non-focal, moves all 4 limbs Psychiatric: normal affect, A&O x 3 Skin: no rash, normal turgor Dx/Plan (1) Acute respiratory failure with hypoxia Code(s): J96.01 - ACUTE RESPIRATORY FAILURE WITH HYPOXIA Status: Acute (2) COPD exacerbation Code(s): J44.1 - CHRONIC OBSTRUCTIVE PULMONARY DISEASE W (ACUTE) EXACERBATION Status: Acute (3) H/O pneumonectomy Code(s): Z98.890 - OTHER SPECIFIED POSTPROCEDURAL STATES; Z90.2 - ACQUIRED ABSENCE OF LUNG [PART OF] Status: Chronic (4) Hyperlipidemia Code(s): E78.5 - HYPERLIPIDEMIA, UNSPECIFIED Status: Chronic - Plan Plan: Patient is a 49M with PMHx of COPD that presents with: #Acute Hypoxic Respiratory Failure 2/2 COPD exacerbation -88% on 4L > Bipap on admission. S/p 2g Mag, 750mg levaquin and 1 duoneb treatment. -Was down to 3L O2 NC yesterday, went up to 4L O2 overnight. Re-tried bipap overnight and did not tolerate well -Breathing improved -pCO2 35>33, could be from chronic retention. No ABG obtained in ER -CXR with early infiltrate, WBC of 11.8>8.3. s/p levaquin, start on doxycycline 11/23. Procal neg. -5 day prednisone course -ASHLEY duonebs [id number], can space out as needed -mIVF while NPO #COPD -Continue home meds #Hx of tobacco use -last cigarette 2 wks ago -Continuing encouraging tobacco cessation code: Full LOS: >48 hours abx: s/p levaquin, continue doxy today, likely transfer to the floor today and continue to monitor respiratory status Addendum - Attending - Attending Attestation Date/Time: 11/24/19 5901 I personally evaluated the patient and discussed the management with Dr. Velez I agree with the History, Examination, Assessment and Plan documented above with any addition or exceptions noted below. COPD Exaccerbation- off bipap on O2 at home level. Continue current treatment and expect d/c in next 1-2 days.
[2019-11-24] MEDS: Doxycycline 100 MG CAP PO SCH ×2 (08:19→20:49)
[2019-11-24] MEDS: predniSONE 20 MG TAB PO SCH (08:19)
[2019-11-24] MEDS: Enoxaparin Sodium 40 MG/0.4 ML SYRINGE SC SCH (08:20)
[2019-11-24] MEDS: Budesonide 0.5 MG/2 ML NEB NEB SCH ×2 (08:44→19:42)
[2019-11-24] MEDS: Nicotine 14 MG PATCH TD SCH (11:39)
[2019-11-24] MEDS ORDERED: Benzonatate 100 MG CAP PO PRN (20:56)
[2019-11-24] MEDS ORDERED: Diabetic Tussin 200 MG/10 ML UDCUP PO PRN (21:39)
[2019-11-25 05:53] LABS: #Neutrophils 6.8 thou/uL (1.40-6.50); %Basophils 0.5 % (0.0-1.0); %Eosinophils 0.3 % (0.0-10.0); %Lymphocytes 19.9 % (21.0-51.0); %Monocytes 10.3 % (0.0-10.0); Hemoglobin 12.3 g/dL (14.0-18.0); Mean Corpuscular HGB CONC 31.1 g/dL (32.0-36.0); Mean Corpuscular Hemoglobin 30.5 pg (27.0-31.0); Mean Corpuscular Volume 98.1 fL (78.0-98.0); Mean Platelet Volume 7.2 fL (7.4-10.4); Platelet Count 332 thou/uL (130-400); RBC Distribution Width 11.4 % (11.5-14.5); Red Blood Cell (RBC) Count 4.04 mill/uL (4.70-6.10); White Blood Cell (WBC) Count 9.8 thou/uL (4.8-10.8)
[2019-11-25 06:01] LABS: Anion Gap 9 mmol/L (10-20); BUN (Urea Nitrogen) 12 mg/dL (8.9-20.6); Calc. Creatinine Clearance 121 mL/min (70-130); Calcium 8.5 mg/dL (7.8-10.44); Carbon Dioxide 37 mmol/L (22-29); Chloride 99 mmol/L (98-107); Estimated GFR-MDRD Greater than 90; Glucose 88 mg/dL (70-105); Potassium 3.6 mmol/L (3.5-5.1); Sodium 141 mmol/L (136-145)
--- NOTE | 2019-11-25 07:16 | PDOC.FM ---
- Subjective Subjective: Pt reports feeling slightly better since admission. c/o chest tightness with SOB and mucus producing cough. receiving a duoneb upon evaluation this morning. on 3 L NC 92-98% o2 sat overnight. - Objective MAR Reviewed: Yes Vital Signs & Weight: Vital Signs (12 hours) Temp Pulse Resp BP Pulse Ox 11/25/19 04:11 98 F 71 18 141/88 H 97 11/25/19 00:16 97.8 F 65 18 134/88 99 11/24/19 20:00 96 11/24/19 19:36 97.8 F 80 18 123/74 96 Weight Weight 72.6 kg Most Recent Monitor Data Heart Rate from ECG 83 NIBP 119/78 NIBP BP-Mean 91 Respiration from ECG 22 SpO2 100 I&O: 11/24/19 11/25/19 11/26/19 06:59 06:59 06:59 Intake Total 1900 3120 Output Total 3800 2450 Balance -1900 670 Result Diagrams: 11/25/19 05:22 11/25/19 05:22 Phys Exam - Physical Examination Constitutional: NAD HEENT: moist MMs, sclera anicteric Neck: no JVD, full ROM diminished airsounds diffusely. end expiratory wheezing present. poor air movement Cardiovascular: RRR, no significant murmur, no rub Gastrointestinal: soft, non-tender, no distention, positive bowel sounds Neurological: non-focal, moves all 4 limbs Psychiatric: normal affect, A&O x 3 Skin: no rash, normal turgor, cap refill <2 seconds Dx/Plan (1) Acute respiratory failure with hypoxia Code(s): J96.01 - ACUTE RESPIRATORY FAILURE WITH HYPOXIA Status: Acute (2) COPD exacerbation Code(s): J44.1 - CHRONIC OBSTRUCTIVE PULMONARY DISEASE W (ACUTE) EXACERBATION Status: Acute (3) H/O pneumonectomy Code(s): Z98.890 - OTHER SPECIFIED POSTPROCEDURAL STATES; Z90.2 - ACQUIRED ABSENCE OF LUNG [PART OF] Status: Chronic (4) Hyperlipidemia Code(s): E78.5 - HYPERLIPIDEMIA, UNSPECIFIED Status: Chronic - Plan Plan: Patient is a 49M with PMHx of COPD that presents with: #Acute Hypoxic Respiratory Failure 2/2 COPD exacerbation -88% on 4L > Bipap on admission. S/p 2g Mag, 750mg levaquin and 1 duoneb treatment. -down to 3L O2. -Breathing improved 92-98 % on 3 L NC overnight. -pCO2 35>33, could be from chronic retention. No ABG obtained in ER -CXR with early infiltrate, WBC of 11.8>8.3>9.8. s/p levaquin, started doxycycline 11/23. Procal neg. -5 day prednisone course -ASHLEY duonebs [id number], can space out as needed #COPD -Continue home meds/inhalers #Hx of tobacco use -last cigarette 2 wks ago -Continuing encouraging tobacco cessation #Hx of lobectomy - aware code: Full LOS: >48 hours abx:stable s/p levaquin, continue doxy antibiotics, continue to monitor respiratory status Addendum - Attending - Attending Attestation Date/Time: 11/25/19 5088 I personally evaluated the patient and discussed the management with Dr. Martin. I agree with the History, Examination, Assessment and Plan documented above with any addition or exceptions noted below. The patient is sitting up in bed. He hasn't slept well, will add melatonin tonight. The patient is slowly improving but is not yet ready to discharge. Will continue nebs, antibiotics, steroids.
[2019-11-25] MEDS: Budesonide 0.5 MG/2 ML NEB NEB SCH ×2 (07:20→21:09)
[2019-11-25] MEDS ORDERED: Melatonin 3 MG TAB PO PRN (08:35)
[2019-11-25] MEDS: Lactated Ringer's 1,000 ML IV SCH ×2 (09:39→16:43)
[2019-11-25] MEDS: Enoxaparin Sodium 40 MG/0.4 ML SYRINGE SC SCH (09:40)
[2019-11-25] MEDS: Doxycycline 100 MG CAP PO SCH ×2 (09:41→20:13)
[2019-11-25] MEDS: predniSONE 20 MG TAB PO SCH (09:41)
[2019-11-25] MEDS: Nicotine 14 MG PATCH TD SCH (12:47)
[2019-11-26 06:09] LABS: #Eosinphils 0.1 thou/uL (0.0-0.7); #Monocytes 1.1 thou/uL (0.11-0.59); #Neutrophils 5.6 thou/uL (1.40-6.50); %Basophils 0.1 % (0.0-1.0); %Eosinophils 1.1 % (0.0-10.0); %Lymphocytes 22.9 % (21.0-51.0); %Monocytes 12.2 % (0.0-10.0); %Neutrophils 63.7 % (42.0-75.0); Hemoglobin 12.9 g/dL (14.0-18.0); Mean Corpuscular HGB CONC 30.9 g/dL (32.0-36.0); Mean Corpuscular Hemoglobin 30.1 pg (27.0-31.0); Mean Corpuscular Volume 97.5 fL (78.0-98.0); Platelet Count 338 thou/uL (130-400); RBC Distribution Width 11.6 % (11.5-14.5); Red Blood Cell (RBC) Count 4.28 mill/uL (4.70-6.10); White Blood Cell (WBC) Count 8.8 thou/uL (4.8-10.8)
[2019-11-26 06:27] LABS: Anion Gap 10 mmol/L (10-20); BUN (Urea Nitrogen) 9 mg/dL (8.9-20.6); Calc. Creatinine Clearance 123 mL/min (70-130); Calcium 8.9 mg/dL (7.8-10.44); Carbon Dioxide 35 mmol/L (22-29); Chloride 100 mmol/L (98-107); Estimated GFR-MDRD Greater than 90; Glucose 79 mg/dL (70-105); Potassium 3.7 mmol/L (3.5-5.1); Sodium 141 mmol/L (136-145)
--- NOTE | 2019-11-26 07:12 | PDOC.FM ---
- Subjective Subjective: no acute overnight events o2 sat 95-100% on 3 L NC. no growth blood ccx @ 48 hrs. Pt c/o chest tightness and cough with sputum production. Denies n/v. States he feels slightly better than yesterday. - Objective MAR Reviewed: Yes Vital Signs & Weight: Vital Signs (12 hours) Temp Pulse Resp BP Pulse Ox 11/25/19 22:20 89 18 96 11/25/19 20:35 98.1 F 85 18 147/83 H 96 11/25/19 20:00 96 Weight Weight 72.6 kg Most Recent Monitor Data Heart Rate from ECG 83 NIBP 119/78 NIBP BP-Mean 91 Respiration from ECG 22 SpO2 100 I&O: 11/25/19 11/26/19 11/27/19 06:59 06:59 06:59 Intake Total 3120 6640 Output Total 2450 6500 Balance 670 140 Result Diagrams: 11/26/19 05:57 11/26/19 05:57 Phys Exam - Physical Examination Constitutional: NAD HEENT: moist MMs, sclera anicteric Neck: no nodes, supple, full ROM Respiratory: wheezing present diminished breath sounds B, worse on R. poor air movement. Cardiovascular: RRR, no significant murmur, no rub Gastrointestinal: soft, non-tender, no distention, positive bowel sounds Musculoskeletal: no edema, pulses present Neurological: non-focal, moves all 4 limbs Psychiatric: normal affect, A&O x 3 Skin: no rash, normal turgor Dx/Plan (1) Acute respiratory failure with hypoxia Code(s): J96.01 - ACUTE RESPIRATORY FAILURE WITH HYPOXIA Status: Acute (2) COPD exacerbation Code(s): J44.1 - CHRONIC OBSTRUCTIVE PULMONARY DISEASE W (ACUTE) EXACERBATION Status: Acute (3) H/O pneumonectomy Code(s): Z98.890 - OTHER SPECIFIED POSTPROCEDURAL STATES; Z90.2 - ACQUIRED ABSENCE OF LUNG [PART OF] Status: Chronic (4) Hyperlipidemia Code(s): E78.5 - HYPERLIPIDEMIA, UNSPECIFIED Status: Chronic - Plan Plan: Patient is a 49M with PMHx of COPD that presents with: #Acute Hypoxic Respiratory Failure-improved, 2/2 COPD exacerbation -88% on 4L > Bipap on admission. S/p 2g Mag, 750mg levaquin and 1 duoneb treatment. -down to 3L O2. -Breathing improved 95-100 % on 3 L NC overnight. -pCO2 35>33, could be from chronic retention. No ABG obtained in ER -CXR with early infiltrate, WBC of 11.8>8.3>9.8. s/p levaquin, started doxycycline 11/23. Procal neg. -5 day prednisone course -ASHLEY duonebs [id number], can space out as needed #COPD -Continue home meds/inhalers #Hx of tobacco use -last cigarette 2 wks ago -Continuing encouraging tobacco cessation #Hx of lobectomy - aware code: Full LOS: >48 hours abx:stable s/p levaquin, continue doxy antibiotics, duonebs and oral steroids. continue to monitor respiratory status Addendum - Attending - Attending Attestation Date/Time: 11/26/19 1721 I personally evaluated the patient and discussed the management with Dr. Martin. I agree with the History, Examination, Assessment and Plan documented above with any addition or exceptions noted below. wBC count stable. Pt with increased productive cough but is feeling a little better. Will continue antibiotics and nebs. Not yet ready for discharge.
[2019-11-26] MEDS: Budesonide 0.5 MG/2 ML NEB NEB SCH ×2 (07:38→20:49)
[2019-11-26] MEDS: predniSONE 20 MG TAB PO SCH (08:26)
[2019-11-26] MEDS: Enoxaparin Sodium 40 MG/0.4 ML SYRINGE SC SCH (08:26)
[2019-11-26] MEDS: Doxycycline 100 MG CAP PO SCH ×2 (08:26→21:39)
[2019-11-26] MEDS: Nicotine 14 MG PATCH TD SCH (10:55)
[2019-11-26] MEDS: Lactated Ringer's 1,000 ML IV SCH (10:57)
[2019-11-27 05:58] LABS: #Basophils 0.1 thou/uL (0.0-0.2); #Eosinphils 0.1 thou/uL (0.0-0.7); #Lymphocytes 2.4 thou/uL (1.20-3.40); #Monocytes 1.1 thou/uL (0.11-0.59); #Neutrophils 6.4 thou/uL (1.40-6.50); %Basophils 0.5 % (0.0-1.0); %Eosinophils 1.2 % (0.0-10.0); %Lymphocytes 23.4 % (21.0-51.0); %Monocytes 11.3 % (0.0-10.0); %Neutrophils 63.6 % (42.0-75.0); Hemoglobin 13.7 g/dL (14.0-18.0); Mean Corpuscular HGB CONC 30.8 g/dL (32.0-36.0); Mean Corpuscular Hemoglobin 29.9 pg (27.0-31.0); Mean Corpuscular Volume 97.2 fL (78.0-98.0); Mean Platelet Volume 7.3 fL (7.4-10.4); Platelet Count 372 thou/uL (130-400); RBC Distribution Width 11.7 % (11.5-14.5); Red Blood Cell (RBC) Count 4.58 mill/uL (4.70-6.10); White Blood Cell (WBC) Count 10.1 thou/uL (4.8-10.8)
[2019-11-27 06:19] LABS: Anion Gap 9 mmol/L (10-20); BUN (Urea Nitrogen) 11 mg/dL (8.9-20.6); Calc. Creatinine Clearance 118 mL/min (70-130); Calcium 9.2 mg/dL (7.8-10.44); Carbon Dioxide 37 mmol/L (22-29); Chloride 97 mmol/L (98-107); Estimated GFR-MDRD Greater than 90; Glucose 98 mg/dL (70-105); Potassium 3.7 mmol/L (3.5-5.1); Sodium 139 mmol/L (136-145)
--- NOTE | 2019-11-27 07:30 | PDOC.FM ---
- Subjective Subjective: Pt c/o constipation, that is causing some abd discomfort/fullness. states he feels about the same as yesterday c/o cough with sputum production. some chest tightness. has bene able to move around slightly more and states he will try more today. O2 sat 94-98 % on 3 L nc overnight. - Objective MAR Reviewed: Yes Vital Signs & Weight: Vital Signs (12 hours) Temp Pulse Resp BP BP Pulse Ox 11/27/19 07:22 98.1 F 83 17 141/82 H 98 11/26/19 20:00 97 11/26/19 19:32 97.9 F 77 18 139/82 97 Weight Weight 72.6 kg Most Recent Monitor Data Heart Rate from ECG 83 NIBP 119/78 NIBP BP-Mean 91 Respiration from ECG 22 SpO2 100 I&O: 11/26/19 11/27/19 11/28/19 06:59 06:59 06:59 Intake Total 6640 2000 Output Total 6500 2300 Balance 140 -300 Result Diagrams: 11/27/19 05:16 11/27/19 05:16 Phys Exam - Physical Examination Constitutional: NAD HEENT: moist MMs, sclera anicteric Neck: no JVD, supple, full ROM Respiratory: wheezing present diminished breath sounds, but more air movement htan yesterday. R>L Cardiovascular: RRR, no significant murmur, no rub Gastrointestinal: soft, non-tender, no distention, positive bowel sounds Musculoskeletal: no edema Neurological: non-focal, moves all 4 limbs Psychiatric: normal affect, A&O x 3 Skin: no rash, normal turgor, cap refill <2 seconds Dx/Plan (1) Acute respiratory failure with hypoxia Code(s): J96.01 - ACUTE RESPIRATORY FAILURE WITH HYPOXIA Status: Acute (2) COPD exacerbation Code(s): J44.1 - CHRONIC OBSTRUCTIVE PULMONARY DISEASE W (ACUTE) EXACERBATION Status: Acute (3) H/O pneumonectomy Code(s): Z98.890 - OTHER SPECIFIED POSTPROCEDURAL STATES; Z90.2 - ACQUIRED ABSENCE OF LUNG [PART OF] Status: Chronic (4) Hyperlipidemia Code(s): E78.5 - HYPERLIPIDEMIA, UNSPECIFIED Status: Chronic - Plan Plan: Patient is a 49M with PMHx of COPD that presents with: #Acute Hypoxic Respiratory Failure-improved, 2/2 COPD exacerbation -88% on 4L > Bipap on admission. S/p 2g Mag, 750mg levaquin and 1 duoneb treatment in ER. -down to 3L O2. -Breathing improved 94-98 % on 3 L NC overnight. -CXR with early infiltrate, WBC of 11.8>8.3>9.8>10.1, s/p levaquin, started doxycycline 11/23. Procal neg. -5 day prednisone course -ASHLEY duonebs [id number], can space out as needed #COPD -Continue home meds/inhalers #Hx of tobacco use -last cigarette 2 wks ago -Continuing encouraging tobacco cessation #Hx of lobectomy - aware #Constipation - starte don PRN miralax and docusate for relief code: Full LOS: >48 hours abx:stable, continue doxy antibiotics, duonebs and oral steroids. continue to monitor respiratory status Addendum - Attending - Attending Attestation Date/Time: 11/27/19 5163 I personally evaluated the patient and discussed the management with Dr. Martin. I agree with the History, Examination, Assessment and Plan documented above with any addition or exceptions noted below. Pt with slow improvement in copd exacerbation. He now has constipation, adding medication to help. Continue nebs, abx, steroids.
[2019-11-27] MEDS: Budesonide 0.5 MG/2 ML NEB NEB SCH ×2 (07:44→19:10)
[2019-11-27] MEDS: Enoxaparin Sodium 40 MG/0.4 ML SYRINGE SC SCH (08:01)
[2019-11-27] MEDS: predniSONE 20 MG TAB PO SCH (08:01)
[2019-11-27] MEDS: Doxycycline 100 MG CAP PO SCH ×2 (08:01→20:52)
[2019-11-27] MEDS ORDERED: Polyethylene Glycol 3350 17 GM Packet PO PRN (11:14)
[2019-11-27] MEDS ORDERED: Docusate Sodium 10 MG/1 ML Oral Suspension PO PRN (11:14)
[2019-11-27] MEDS: Nicotine 14 MG PATCH TD SCH (13:33)
[2019-11-28] MEDS: Acetaminophen 325 MG TAB PO PRN (05:42)
[2019-11-28 06:13] LABS: #Eosinphils 0.1 thou/uL (0.0-0.7); #Lymphocytes 2.8 thou/uL (1.20-3.40); #Neutrophils 7.4 thou/uL (1.40-6.50); %Basophils 0.3 % (0.0-1.0); %Eosinophils 0.7 % (0.0-10.0); %Lymphocytes 24.6 % (21.0-51.0); %Neutrophils 65.5 % (42.0-75.0); Hemoglobin 13.4 g/dL (14.0-18.0); Mean Corpuscular Hemoglobin 30.1 pg (27.0-31.0); Mean Platelet Volume 7.6 fL (7.4-10.4); Platelet Count 356 thou/uL (130-400); RBC Distribution Width 11.8 % (11.5-14.5); Red Blood Cell (RBC) Count 4.45 mill/uL (4.70-6.10); White Blood Cell (WBC) Count 11.3 thou/uL (4.8-10.8)
[2019-11-28 06:29] LABS: BUN (Urea Nitrogen) 12 mg/dL (8.9-20.6); Calc. Creatinine Clearance 121 mL/min (70-130); Calcium 9.3 mg/dL (7.8-10.44); Estimated GFR-MDRD Greater than 90; Glucose 95 mg/dL (70-105)
[2019-11-28] MEDS: Budesonide 0.5 MG/2 ML NEB NEB SCH ×2 (06:32→19:39)
[2019-11-28 06:38] LABS: Anion Gap 11 mmol/L (10-20); Carbon Dioxide 35 mmol/L (22-29); Chloride 97 mmol/L (98-107); Potassium 3.4 mmol/L (3.5-5.1); Sodium 140 mmol/L (136-145)
--- NOTE | 2019-11-28 07:14 | PDOC.FM ---
- Subjective Subjective: Pt states he feels about the same. C/o cough, but states sputum production has decreased since admission. Denies CP. 94-100% O2 sat on 3 L NC overnight. - Objective MAR Reviewed: Yes Vital Signs & Weight: Vital Signs (12 hours) Temp Pulse Resp BP BP Pulse Ox 11/28/19 07:09 98.1 F 83 20 124/74 100 11/28/19 06:29 105 H 18 98 11/28/19 05:30 99 11/27/19 21:00 97 11/27/19 20:00 98.0 F 79 18 121/76 97 Weight Weight 72.6 kg Most Recent Monitor Data Heart Rate from ECG 83 NIBP 119/78 NIBP BP-Mean 91 Respiration from ECG 22 SpO2 100 I&O: 11/27/19 11/28/19 11/29/19 06:59 06:59 06:59 Intake Total 2000 650 Output Total 2300 2225 Balance -300 -1575 Result Diagrams: 11/28/19 05:24 11/28/19 05:24 Phys Exam - Physical Examination Constitutional: NAD HEENT: moist MMs, sclera anicteric Neck: no nodes, supple, full ROM Respiratory: wheezing present scattered rhonchi. Cardiovascular: RRR, no significant murmur, no rub Gastrointestinal: soft, non-tender, no distention, positive bowel sounds Musculoskeletal: no edema, pulses present Neurological: non-focal, moves all 4 limbs Psychiatric: normal affect, A&O x 3 Skin: no rash, normal turgor, cap refill <2 seconds Dx/Plan (1) Acute respiratory failure with hypoxia Code(s): J96.01 - ACUTE RESPIRATORY FAILURE WITH HYPOXIA Status: Acute (2) COPD exacerbation Code(s): J44.1 - CHRONIC OBSTRUCTIVE PULMONARY DISEASE W (ACUTE) EXACERBATION Status: Acute (3) H/O pneumonectomy Code(s): Z98.890 - OTHER SPECIFIED POSTPROCEDURAL STATES; Z90.2 - ACQUIRED ABSENCE OF LUNG [PART OF] Status: Chronic (4) Hyperlipidemia Code(s): E78.5 - HYPERLIPIDEMIA, UNSPECIFIED Status: Chronic - Plan Plan: Patient is a 49M with PMHx of COPD that presents with: #Acute Hypoxic Respiratory Failure-improved, 2/2 COPD exacerbation -88% on 4L > Bipap on admission. S/p 2g Mag, 750mg levaquin and 1 duoneb treatment in ER. -down to 3L O2. -Breathing improved 94-100 % on 3 L NC overnight. -CXR with early infiltrate, WBC of 11.8>8.3>9.8>10.1> 11.3, s/p levaquin, started doxycycline 11/23. Procal neg. Added azithro 11/27 for 5 days. -5 day prednisone course -ASHLEY duonebs [id number], can space out as needed #COPD -Continue home meds/inhalers - started Brovana nebs BID, will d/c home on this - New home meds: spiriva, pulmicort, albuterol and brovana #Hx of tobacco use -last cigarette 2 wks ago -Continuing encouraging tobacco cessation #Hx of lobectomy - aware #Constipation - started on PRN miralax and docusate for relief code: Full LOS: >48 hours abx:stable, continue doxy and azithro antibiotics, duonebs and oral steroids. continue to monitor respiratory status Addendum - Attending - Attending Attestation Date/Time: 11/28/19 3269 I personally evaluated the patient and discussed the management with Dr. Martin. I agree with the History, Examination, Assessment and Plan documented above with any addition or exceptions noted below. The patient is slowly improving. Will repeat CXR today. Will add brovana neb to his regimen. Anticipate possible discharge tomorrow.
[2019-11-28] MEDS ORDERED: Potassium Chloride 20 MEQ TAB PO SCH (07:15)
[2019-11-28] MEDS ORDERED: Azithromycin 500 MG in Sodium Chloride 0.9% 250 ML 250 ML IVPB SCH (08:00)
[2019-11-28] MEDS: Enoxaparin Sodium 40 MG/0.4 ML SYRINGE SC SCH (09:23)
[2019-11-28] MEDS: predniSONE 20 MG TAB PO SCH (09:23)
[2019-11-28] MEDS: Doxycycline 100 MG CAP PO SCH (09:23)
[2019-11-28] MEDS ORDERED: Arformoterol 15 MCG/2 ML NEB NEB SCH (10:15)
--- NOTE | 2019-11-28 10:47 | RAD ---
Chest one view HISTORY: Cough. COMPARISON: 11/23/2019. FINDINGS: Cardiac silhouette is magnified by projection. Pulmonary vasculature upper limits of normal . Subtle ill-defined patchy infiltrate involving the right lower lobe similar in appearance to the prio r study. Parenchymal scarring at the left base and blunting of the left lateral costophrenic angle similar in appearance to the prior study. Mediastinum is midline. No evidence of pneumothorax. Old injury to the left chest wall again demonstrated. IMPRESSION : Subtle right basilar infiltrate, chronic scarring at the left base, and other findings are stable.
[2019-11-28] MEDS: Nicotine 14 MG PATCH TD SCH (11:44)
--- NOTE | 2019-11-28 12:17 | PDOC.BPN ---
- Brief Progress Note repeat CXR today. showed worsened RLL infiltrate D/c doxy and started IV rocephin. continue azithro IV 5 days
[2019-11-28] MEDS: cefTRIAXone\\ROCEPHIN 2 GM in Sodium Chloride 0.9% 100 ML IVPB SCH (13:09)
[2019-11-28] MEDS: Arformoterol 15 MCG/2 ML NEB NEB SCH (19:38)
[2019-11-29 07:04] LABS: #Eosinphils 0.1 thou/uL (0.0-0.7); #Lymphocytes 2.7 thou/uL (1.20-3.40); #Neutrophils 8.1 thou/uL (1.40-6.50); %Basophils 0.1 % (0.0-1.0); %Eosinophils 1.1 % (0.0-10.0); %Lymphocytes 22.6 % (21.0-51.0); %Monocytes 8.3 % (0.0-10.0); Hemoglobin 14.1 g/dL (14.0-18.0); Mean Corpuscular HGB CONC 31.8 g/dL (32.0-36.0); Mean Corpuscular Volume 97.4 fL (78.0-98.0); Mean Platelet Volume 7.3 fL (7.4-10.4); Platelet Count 369 thou/uL (130-400); RBC Distribution Width 11.9 % (11.5-14.5); Red Blood Cell (RBC) Count 4.56 mill/uL (4.70-6.10); White Blood Cell (WBC) Count 11.9 thou/uL (4.8-10.8)
[2019-11-29 07:24] LABS: Anion Gap 8 mmol/L (10-20); BUN (Urea Nitrogen) 12 mg/dL (8.9-20.6); Calc. Creatinine Clearance 118 mL/min (70-130); Calcium 8.9 mg/dL (7.8-10.44); Carbon Dioxide 37 mmol/L (22-29); Chloride 99 mmol/L (98-107); Estimated GFR-MDRD Greater than 90; Glucose 81 mg/dL (70-105); Sodium 140 mmol/L (136-145)
--- NOTE | 2019-11-29 07:27 | PDOC.FM ---
- Subjective Subjective: Pt reports feeling much better He states he would like to stay one more night. occasional coughing spells. decreased sputum production Antibiotics added yesterday to cover pneumonia. No acute overnight events. VSS. O2 sat 98-96 on 3-4 L nc - Objective MAR Reviewed: Yes Vital Signs & Weight: Vital Signs (12 hours) Temp Pulse Resp BP BP Pulse Ox 11/29/19 07:11 97.9 F 88 16 126/83 96 11/28/19 19:39 92 16 98 11/28/19 19:38 92 16 98 11/28/19 19:36 97.9 F 83 18 124/77 97 Weight Weight 72.6 kg Most Recent Monitor Data Heart Rate from ECG 83 NIBP 119/78 NIBP BP-Mean 91 Respiration from ECG 22 SpO2 100 I&O: 11/28/19 11/29/19 11/30/19 06:59 06:59 06:59 Intake Total 650 1500 Output Total 2225 1300 Balance -1575 200 Result Diagrams: 11/29/19 06:33 11/29/19 06:33 Phys Exam - Physical Examination Constitutional: NAD HEENT: moist MMs, sclera anicteric Neck: no nodes, no JVD, supple, full ROM Respiratory: wheezing present scant crackles. moderate air movement-improved from previous exam. speaks in 5-7 word sentences. Tolerating more exertion/walking Cardiovascular: RRR, no significant murmur, no rub Gastrointestinal: soft, non-tender, no distention, positive bowel sounds Musculoskeletal: no edema, pulses present Neurological: non-focal, normal sensation, moves all 4 limbs Psychiatric: normal affect, A&O x 3 Skin: no rash, normal turgor, cap refill <2 seconds Dx/Plan (1) Acute respiratory failure with hypoxia Code(s): J96.01 - ACUTE RESPIRATORY FAILURE WITH HYPOXIA Status: Acute (2) COPD exacerbation Code(s): J44.1 - CHRONIC OBSTRUCTIVE PULMONARY DISEASE W (ACUTE) EXACERBATION Status: Acute (3) H/O pneumonectomy Code(s): Z98.890 - OTHER SPECIFIED POSTPROCEDURAL STATES; Z90.2 - ACQUIRED ABSENCE OF LUNG [PART OF] Status: Chronic (4) Hyperlipidemia Code(s): E78.5 - HYPERLIPIDEMIA, UNSPECIFIED Status: Chronic - Plan Plan: Patient is a 49M with PMHx of COPD that presents with: #Acute Hypoxic Respiratory Failure-improved, 2/2 COPD exacerbation -88% on 4L > Bipap on admission. S/p 2g Mag, 750mg levaquin and 1 duoneb treatment in ER. -Breathing improved 96-98 % on 3-4 L NC overnight. -CXR with early infiltrate, WBC of 11.8>8.3>9.8>10.1> 11.3>11.9, s/p levaquin, started doxycycline 11/23. Procal neg. Added azithro 11/27 for 5 days. -5 day prednisone course -ASHLEY duonebs [id number], can space out as needed # RLL Pnemonia - rocephin + azithro, will d/c home on Po to complete 10 day course. - dupnebs - oral steroids. #COPD -Continue home meds/inhalers - started Brovana nebs BID, will d/c home on this - New home meds: spiriva, pulmicort, albuterol and brovana #Hx of tobacco use -last cigarette 2 wks ago -Continuing encouraging tobacco cessation #Hx of lobectomy - aware #Constipation - started on PRN miralax and docusate for relief code: Full LOS: >48 hours abx:stable, continue rocephin and azithro antibiotics, duonebs and oral steroids. continue to monitor respiratory status. improving, planning d/c home . Addendum - Attending - Attending Attestation Date/Time: 11/29/19 1214 I personally evaluated the patient and discussed the management with Dr. Martin. I agree with the History, Examination, Assessment and Plan documented above with any addition or exceptions noted below. Antibiotics were changed yesterday due to pnemonia. Pt appears improved. Will continue rocephin and azithromycin. anticipate d/c tomorrow.
[2019-11-29] MEDS: Budesonide 0.5 MG/2 ML NEB NEB SCH ×2 (08:37→19:28)
[2019-11-29] MEDS: Arformoterol 15 MCG/2 ML NEB NEB SCH ×2 (08:37→19:28)
[2019-11-29] MEDS: predniSONE 20 MG TAB PO SCH (09:05)
[2019-11-29] MEDS: Enoxaparin Sodium 40 MG/0.4 ML SYRINGE SC SCH (09:05)
[2019-11-29] MEDS: Azithromycin 250 MG in Sodium Chloride 0.9% 250 ML 250 ML IVPB SCH ×2 (09:06→10:49)
[2019-11-29] MEDS: Nicotine 14 MG PATCH TD SCH (09:06)
[2019-11-29] MEDS: cefTRIAXone\\ROCEPHIN 2 GM in Sodium Chloride 0.9% 100 ML IVPB SCH (13:28)
--- NOTE | 2019-11-29 16:17 | PQF ---
Q49 2019 [facility] Updated: Dear Dr. Rosalinda Martin Date: 11-29-19 Please exercise your independent, professional judgment in responding to the clarification form. Clinical indicators are provided on the bottom of this form for your review. Diagnosis: PNEUMONIA Present on Admission (POA): Likely present on admission some minimally increased parenchymal lung changes in the right mid lung field & l mid lung field superimposed on chronic change were present on admission exray. Cannot exclude these as early infiltrative changes. f/u x-ray showed RLL infiltrate. For continuity of documentation, please document condition throughout progress notes and discharge summary. Thank You. To be completed by CDI/Coding staff for physician review: CLINICAL INDICATORS - SIGNS / SYMPTOMS / LABS / RSULTS AND LOCATION IN MR: CXR 11/22: Some minimally increased parenchymal lung changes in the right mid lung field & l mid lung field superimposed on chronic change. Cannot exclude these as early infiltrative changes. 11-23-19 WBC's on admit: 11.8, Neutrophils 90.2% PN DR. MARTIN 11-29-19: ANTIBIOTICS ADDED YESTERDAY TO COVER PNEUMONIA RISK FACTORS / RSULTS AND LOCATION IN MR: CXR 11/22: Some minimally increased parenchymal lung changes in the right mid lung field & l mid lung field superimposed on chronic change. Cannot exclude these as early infiltrative changes. 11-23-19 WBC's on admit: 11.8, Neutrophils 90.2% TREATMENT / RESULTS AND LOCATION IN MR: MAR: ZITHROMAX IV, NEBS 11-24-19 CDS Signature: Linn Fields Phone #: [phone] Date: 11-29-19 This is a permanent part of the Medical Record [facility]
[2019-11-30 05:49] LABS: #Basophils 0.1 thou/uL (0.0-0.2); #Eosinphils 0.1 thou/uL (0.0-0.7); #Lymphocytes 2.8 thou/uL (1.20-3.40); #Monocytes 1.2 thou/uL (0.11-0.59); #Neutrophils 10.5 thou/uL (1.40-6.50); %Basophils 0.6 % (0.0-1.0); %Eosinophils 0.8 % (0.0-10.0); %Lymphocytes 18.7 % (21.0-51.0); %Monocytes 8.4 % (0.0-10.0); %Neutrophils 71.4 % (42.0-75.0); Hemoglobin 13.6 g/dL (14.0-18.0); Mean Corpuscular HGB CONC 31.9 g/dL (32.0-36.0); Mean Corpuscular Volume 97.2 fL (78.0-98.0); Mean Platelet Volume 7.4 fL (7.4-10.4); Platelet Count 339 thou/uL (130-400); RBC Distribution Width 12.2 % (11.5-14.5); Red Blood Cell (RBC) Count 4.39 mill/uL (4.70-6.10); White Blood Cell (WBC) Count 14.7 thou/uL (4.8-10.8)
[2019-11-30 06:09] LABS: Anion Gap 13 mmol/L (10-20); BUN (Urea Nitrogen) 14 mg/dL (8.9-20.6); Calc. Creatinine Clearance 109 mL/min (70-130); Calcium 8.8 mg/dL (7.8-10.44); Carbon Dioxide 30 mmol/L (22-29); Chloride 99 mmol/L (98-107); Estimated GFR-MDRD Greater than 90; Glucose 131 mg/dL (70-105); Potassium 3.3 mmol/L (3.5-5.1); Sodium 139 mmol/L (136-145)
[2019-11-30] MEDS: Arformoterol 15 MCG/2 ML NEB NEB SCH (07:11)
[2019-11-30] MEDS: Budesonide 0.5 MG/2 ML NEB NEB SCH (07:13)
[2019-11-30] MEDS: Nicotine 14 MG PATCH TD SCH (08:19)
[2019-11-30] MEDS: Azithromycin 250 MG in Sodium Chloride 0.9% 250 ML 250 ML IVPB SCH (08:19)
[2019-11-30] MEDS: Enoxaparin Sodium 40 MG/0.4 ML SYRINGE SC SCH (08:19)
[2019-11-30 08:31] VITALS: BP 117/74; TEMP 97.9
--- NOTE | 2019-11-30 08:56 | PDOC.FM ---
- Subjective Subjective: Pt sitting up in bed states he feels great occasional cough still denies CP. SOB improved. O2 down to home requirements - Objective MAR Reviewed: Yes Vital Signs & Weight: Vital Signs (12 hours) Temp Pulse Resp BP Pulse Ox 11/30/19 08:28 97.9 F 99 20 117/74 94 L 11/30/19 07:13 85 16 95 11/30/19 07:11 85 16 95 Weight Weight 72.6 kg Most Recent Monitor Data Heart Rate from ECG 83 NIBP 119/78 NIBP BP-Mean 91 Respiration from ECG 22 SpO2 100 I&O: 11/29/19 11/30/19 12/01/19 06:59 06:59 06:59 Intake Total 1500 Output Total 1300 Balance 200 Result Diagrams: 11/30/19 05:27 11/30/19 05:27 Phys Exam - Physical Examination Constitutional: NAD HEENT: moist MMs, sclera anicteric Neck: no nodes, no JVD, supple Respiratory: wheezing present (end expiratory on R side ) good air movement throughout all lung silver Cardiovascular: RRR, no significant murmur Gastrointestinal: soft, non-tender, no distention, positive bowel sounds Musculoskeletal: no edema, pulses present Neurological: non-focal, normal sensation, moves all 4 limbs Psychiatric: normal affect, A&O x 3 Dx/Plan (1) Acute respiratory failure with hypoxia Code(s): J96.01 - ACUTE RESPIRATORY FAILURE WITH HYPOXIA Status: Acute (2) COPD exacerbation Code(s): J44.1 - CHRONIC OBSTRUCTIVE PULMONARY DISEASE W (ACUTE) EXACERBATION Status: Acute (3) H/O pneumonectomy Code(s): Z98.890 - OTHER SPECIFIED POSTPROCEDURAL STATES; Z90.2 - ACQUIRED ABSENCE OF LUNG [PART OF] Status: Chronic (4) Hyperlipidemia Code(s): E78.5 - HYPERLIPIDEMIA, UNSPECIFIED Status: Chronic - Plan Plan: Patient is a 49M with PMHx of COPD that presents with: #Acute Hypoxic Respiratory Failure-improved, 2/2 COPD exacerbation -88% on 4L > Bipap on admission. S/p 2g Mag, 750mg levaquin and 1 duoneb treatment in ER. -Breathing improved 96-98 % on 3-4 L NC overnight. -CXR with early infiltrate, WBC of 11.8>8.3>9.8>10.1> 11.3>11.9, s/p levaquin, started doxycycline 11/23. Procal neg. Added azithro 11/27 for 5 days. - d/c home on 3 more days azithro and 8 more days of omnicef. -5 day prednisone course -ASHLEY duonebs [id number], can space out as needed # RLL Pnemonia - rocephin + azithro, will d/c home on Po to complete 10 day course. - dupnebs - oral steroids. #COPD -Continue home meds/inhalers - started Brovana nebs BID, will d/c home on this - New home meds: spiriva, pulmicort, albuterol and brovana #Hx of tobacco use -last cigarette 2 wks ago -Continuing encouraging tobacco cessation #Hx of lobectomy - aware #Constipation - started on PRN miralax and docusate for relief code: Full LOS: >48 hours abx:stable, continue omnicef and azithro antibiotics PO for full course. improved, planning d/c home today. Addendum - Attending - Attending Attestation Date/Time: 11/30/19 7472 I personally evaluated the patient and discussed the management with Dr. Martin. I agree with the History, Examination, Assessment and Plan documented above with any addition or exceptions noted below. Patient is significantly improved. Oxygen requirement has decreased. The patient's lungs are much clearer. He will discharge home and f/u with me in 3- 5 days.
--- NOTE | 2019-11-30 19:01 | DIS ---
DATE OF ADMISSION: 11/23/2019 DATE OF DISCHARGE: 11/30/2019 RESIDENT: Rosalinda Martin DO. ADMITTING ATTENDING: Dr. Murguia DISCHARGE ATTENDING: Ruma Guzman MD CONSULTATION: None. PROCEDURES: Chest x-ray on 11/22 showed some minimally-increased parenchymal lung changes in the right mid lung field and left mid lung field, superimposed on chronic changes, cannot definitely exclude these as early infiltrative changes. Left- sided pleural changes have been present on prior exam. They appear slightly increased as compared to prior study. Chest x-ray on 11/27 showed subtle right basilar infiltrate, chronic scarring at the left base, and other findings are stable. DIAGNOSES: 1. Acute hypoxic respiratory failure secondary to chronic obstructive pulmonary disease exacerbation. 2. Right lower lobe pneumonia. 3. Chronic obstructive pulmonary disease. 4. History of tobacco abuse. 5. History of lobectomy. 6. Constipation, improved. DISCHARGE MEDICATIONS: 1. Omnicef 300 mg p.o. b.i.d. for 8 days. 2. Azithromycin 250 mg p.o. q.24 hours for 3 more days as the patient received 2 days in hospital. 3. Brovana 15 mcg nebulizer b.i.d., 60 nebs given, this is a new medication for the patient to start on his chronic COPD inhaler regimen. 4. Ventolin inhaler 2 puffs inhaled q.4 hours p.r.n. for shortness of breath. 5. Pulmicort Flexhaler 2 puffs inhaled b.i.d. 6. DuoNeb 3 mL nebulizers t.i.d. p.r.n. for shortness of breath. 7. Spiriva Respimat 2 inhaled daily. HISTORY OF PRESENT ILLNESS AND HOSPITAL COURSE: Mr. Durán is a 49-year-old gentleman with a past medical history of COPD and lobectomy, came into the emergency department for shortness of breath. He was found to be hypoxic and given IV steroids, DuoNebs, and antibiotics. He was then transferred to the floor and started on doxycycline, DuoNebs, and oral steroids. The patient improved slightly over the next couple of days, and then a repeat chest x-ray was taken, which did show a definite right lower lobe infiltrate. His IV antibiotics were started with azithromycin and Rocephin which he received 2 days of. He showed marked improvement and back to his baseline oxygen requirement before discharge, and we will continue antibiotics in outpatient setting, 3 more days of azithromycin as well as 8 more days of third-generation cephalosporin going with Omnicef. The patient understands the directions to take the medications in full and he will follow up with his primary care physician, Dr. Guzman, early this week for close management. The patient previously had been on Spiriva, Pulmicort, and albuterol inhalers. We increased his regimen to triple therapy to include Brovana inhaler. This was also discussed with the patient's primary care physician who is intending physician on Medicine round this week, who agreed with this plan. This is likely to try and help his hospitalizations due to COPD exacerbation. DISPOSITION: Stable upon discharge, back to baseline oxygenation requirements, continue home oxygen. DISCHARGE INSTRUCTIONS: 1. Location: To home. 2. Diet: Regular diet. 3. Activity: As tolerated. 4. Followup: Follow up with primary care physician, Dr. Guzman, in 2 to 3 days. Job ID: [id number] MTDD
== END 2019-11-30 11:59 | disposition home or self-care (01) | DRG 193 ==
LOC: ERS 06:29 → IMCU/EMU 09:56 → T4-A 11-24 10:12
PROVIDERS: ADMIT Family Medicine; ATTEND Family Medicine
PROC: 5A09357 Assistance with Respiratory Ventilation, Less than 24 Consecutive Hours, Continuous Positive Airway Pressure (ICD-10-PCS; principal; 2019-11-23)
DX: J18.9 Pneumonia, unspecified organism (principal); J96.21 Acute and chronic respiratory failure with hypoxia; J44.1 Chronic obstructive pulmonary disease with (acute) exacerbation; J44.0 Chronic obstructive pulmonary disease with (acute) lower respiratory infection; Z20.828 Contact with and (suspected) exposure to other viral communicable diseases; K59.00 Constipation, unspecified; E78.5 Hyperlipidemia, unspecified; Z87.891 Personal history of nicotine dependence; Z90.49 Acquired absence of other specified parts of digestive tract; Z88.0 Allergy status to penicillin
CPT/HCPCS: 36415; 36600; 71045; 80048; 80053; 83605; 83735; 83880; 84145; 84484; 85025; 87040; 93005; 94640; 94660; 94760; 96365; 96367; J0456; J0696; J1650; J1956; J3475; J3490; J7050; J7512; J7611; J7620; J7626; U0002

== ENCOUNTER 2020-02-04 12:29 | Outpatient (CLI) | payer MEDICARE, MEDICAID ==
--- NOTE | 2020-02-04 13:42 | CT ---
CT OF CHEST PERFORMED WITHOUT CONTRAST ENHANCEMENT: 02/04/20 HISTORY: Follow-up of pulmonary nodules. COMPARISON: CT chest of 04/27/19. There are what appear to be postoperative changes of the left upper lobe. I do not identify a left up per lobe bronchus. There is hyperexpansion of the right lobe associated with these changes. There are bronchiectatic changes in both lung silver. These bronchiectatic changes are most pronounce d in the left lower lobe and right middle lobe. Somewhat thick walled bronchi at the takeoff of some of the right middle lobe bronchi. There are peripheral tiny cystic changes which could represent foca l dilatation of tiny bronchioles. The changes that were seen in the right upper lobe which had a slig htly nodular appearance also showed some evidence of some cylindrical change and I think this represe nts some component of the bronchiectatic change with mucous plugging causing some part of this appear ance. These nodular changes are similar to the prior examination. The peripheral nodular opacities se en in both lower lobes are similar to the prior examination. These may be manifestation of early newberry ges then progress to the tiny thin wall cystic areas that are seen within both lung silver. No significant mediastinal or hilar adenopathy. The visualized livre parenchyma shows no focal findings. Gallbladder has been removed. IMPRESSION: 1. Postop changes of the left upper lobe with hyperexpansion of the right upper lobe which cross es midline across the anterior recess. 2. Stable appearance to the bronchiectatic change. Grouping of nodular opacities in the right ba se and some ground glass opacities and thin walled cysts seen in both lung bases. POS: CARMEN
== END 2020-02-04 12:30 | disposition home or self-care (01) ==
LOC: BICCT 12:29
PROVIDERS: ATTEND Internal Medicine Pulmonary Disease
DX: R91.1 Solitary pulmonary nodule (principal); R91.8 Other nonspecific abnormal finding of lung field; J98.4 Other disorders of lung
CPT/HCPCS: 71250

== ENCOUNTER 2020-03-10 11:43 | Emergency (ER) | payer MEDICARE, MEDICAID ==
[2020-03-10] MEDS ORDERED: Acetaminophen 500 MG TAB ONE (12:21)
[2020-03-10 12:28] LABS: #Basophils 0.1 thou/uL (0.0-0.2); #Eosinphils 0.1 thou/uL (0.0-0.7); #Lymphocytes 0.8 thou/uL (1.20-3.40); #Monocytes 0.8 thou/uL (0.11-0.59); #Neutrophils 7.5 thou/uL (1.40-6.50); %Basophils 0.7 % (0.0-1.0); %Eosinophils 0.8 % (0.0-10.0); %Lymphocytes 8.7 % (21.0-51.0); %Monocytes 8.1 % (0.0-10.0); %Neutrophils 81.7 % (42.0-75.0); Mean Corpuscular HGB CONC 31.4 g/dL (32.0-36.0); Mean Corpuscular Hemoglobin 30.5 pg (27.0-31.0); Mean Corpuscular Volume 97.3 fL (78.0-98.0); Mean Platelet Volume 6.9 fL (7.4-10.4); Platelet Count 359 thou/uL (130-400); RBC Distribution Width 11.9 % (11.5-14.5); Red Blood Cell (RBC) Count 5.23 mill/uL (4.70-6.10); White Blood Cell (WBC) Count 9.2 thou/uL (4.8-10.8)
[2020-03-10] MEDS ORDERED: predniSONE 20 MG TAB ONE (12:46)
[2020-03-10 13:19] LABS: Albumin 4.1 g/dL (3.5-5.0)
[2020-03-10 13:21] LABS: Calcium 9.8 mg/dL (7.8-10.44); Chloride 92 mmol/L (98-107); Potassium 5.3 mmol/L (3.5-5.1); Sodium 141 mmol/L (136-145)
[2020-03-10 13:22] LABS: Globulin 4.6 g/dL (2.4-3.5); Glucose 91 mg/dL (70-105); Protein, Total 8.7 g/dL (6.0-8.3)
[2020-03-10 13:24] LABS: Bilirubin, Total 0.3 mg/dL (0.2-1.2)
[2020-03-10 13:25] LABS: Alkaline Phosphatase 130 U/L (40-110); Calc. Creatinine Clearance 0 mL/min (70-130); Estimated GFR-MDRD Greater than 90
[2020-03-10 13:26] LABS: BUN (Urea Nitrogen) 11 mg/dL (8.9-20.6)
[2020-03-10 13:27] LABS: AST (SGOT) 26 U/L (5-34)
[2020-03-10 13:28] LABS: ALT (SGPT) 32 U/L (8-55)
[2020-03-10 13:40] LABS: Base Excess-Venous 9.6 mmol/L (-2.0 to 3.0); Bicarbonate (HCO3v) 42.8 mmol/L (22.0-28.0); CO2 Tension (PvCO2) 101.4 mmHg (40.0-50.0); Calcium, Ionized 1.14 mmol/L (1.15-1.33); Chloride 96 mmol/L (98-107); Hemoglobin - Calc 17.3 g/dL (14.0-18.0); Potassium 4.6 mmol/L (3.5-5.1); Sodium 144 mmol/L (138-145); T. Carbon Dioxide 45.9 mmol/L (22.0-28.0); vO2 Saturation-calc 73.4 % (60.0-85.0)
--- NOTE | 2020-03-10 13:40 | RAD ---
PORTABLE CHEST 1 VIEW: Date: 03/10/2020 Time: 1211 hours HISTORY: Chest pain, cough. Difficulty breathing. COMPARISON: 11/28/2019. FINDINGS: Chronic changes in the left lung base with blunting of the left lateral costophrenic angle and parenc hymal scarring are again seen. The heart size is stable. No lobar consolidation, pneumothoraces, or r ight pleural effusion seen. IMPRESSION: Stable exam. POS: AH
[2020-03-10 13:42] LABS: Anion Gap 21 mmol/L (10-20); Carbon Dioxide 33 mmol/L (22-29)
[2020-03-10 13:43] LABS: Bacteria/HPF None Seen HPF (None Seen); Bilirubin Negative (Negative); Blood, Urine 1+ (Negative); Clarity Clear (Clear); Glucose, Urine (Dipstick) Normal (Negative); Ketone, Urine Negative (Negative); Leukocyte Negative Leu/uL (Negative); Nitrite Negative (Negative); Protein, Urine (Dipstick) 30 mg/dL (Neg-Trace); Specific Gravity, Urine 1.019 (1.002-1.036); Squamous Epithelial None Seen HPF (0-3); Urobilinogen Normal mg/dL (Less than 2); WBC/HPF 0-3 HPF (0-3)
[2020-03-10] MEDS ORDERED: Magnesium 2 GM/50 ML BAG (IN WATER) ONE (13:58)
[2020-03-10 15:18] LABS: SARS-CoV-2 NAA Rapid Test Not Detected (NotDetected)
[2020-03-10 16:13] LABS: Actual Bicarbonate (HCO3a) 35.2 mEq/L (22-28); Analyzer IN Cardio ER; Base Excess (BEa) 4.3 mEq/L (-2.0 to +3.0); Calcium, Ionized (arterial) 1.19 mmol/L (1.12-1.30); Carboxyhemoglobin (COHb) 1.7 gm% (0.0-3.0); Hemoglobin (Hb) 15.3 g/dL (14.0-18.0); O2 Tension (PaO2), arterial 85.3 mmHg (80.0-100.0); Potassium - ABG Lab 4.73 mmol/L (3.70-5.30); pH, Arterial 7.23 (7.35-7.45)
[2020-03-10 16:14] LABS: CO2 Tension 85.4 mmHg (35.0-45.0); Puncture Site LRA
[2020-03-11 09:18] LABS: Base Excess-Venous 8.4 mmol/L (-2.0 to 3.0); Bicarbonate (HCO3v) 42.9 mmol/L (22.0-28.0); CO2 Tension (PvCO2) 114.4 mmHg (40.0-50.0); Calcium, Ionized 1.15 mmol/L (1.15-1.33); Chloride 95 mmol/L (98-107); Hemoglobin - Calc 17.2 g/dL (14.0-18.0); Potassium 4.7 mmol/L (3.5-5.1); Sodium 142 mmol/L (138-145); T. Carbon Dioxide 46.5 mmol/L (22.0-28.0); vO2 Saturation-calc 64.4 % (60.0-85.0)
== END 2020-03-10 16:54 | disposition short-term general hospital (02) ==
LOC: ERS 11:43
DX: J44.1 Chronic obstructive pulmonary disease with (acute) exacerbation (principal); J96.92 Respiratory failure, unspecified with hypercapnia; Z79.891 Long term (current) use of opiate analgesic; Z79.899 Other long term (current) drug therapy
CPT/HCPCS: 71045; 80053; 81003; 81015; 82330; 82803; 82805; 83605; 83880; 84484; 85025; 87040; 87086; 93005; 94644; 94660; 94760; J1956; J3475; J7512; J7620; U0002

== ENCOUNTER 2020-09-25 20:45 | Inpatient (IN) | payer MEDICARE, MEDICAID ==
[2020-09-25 21:15] LABS: Actual Bicarbonate (HCO3a) 40.2 mEq/L (22-28); Analyzer IN Cardio ER; Base Excess (BEa) 9.8 mEq/L (-2.0 to +3.0); Calcium, Ionized (arterial) 1.19 mmol/L (1.12-1.30); Carboxyhemoglobin (COHb) 3.3 gm% (0.0-3.0); Hemoglobin (Hb) 15.1 g/dL (14.0-18.0); O2 Tension (PaO2), arterial 86.1 mmHg (80.0-100.0); Potassium - ABG Lab 4.39 mmol/L (3.70-5.30)
[2020-09-25 21:21] LABS: Puncture Site RRA
[2020-09-25 21:23] LABS: #Lymphocytes 0.8 thou/uL (1.20-3.40); #Monocytes 0.4 thou/uL (0.11-0.59); #Neutrophils 8.7 thou/uL (1.40-6.50); %Basophils 0.1 % (0.0-1.0); %Eosinophils 0.5 % (0.0-10.0); %Lymphocytes 8.4 % (21.0-51.0); %Monocytes 3.8 % (0.0-10.0); %Neutrophils 87.2 % (42.0-75.0); Hemoglobin 14.9 g/dL (14.0-18.0); Mean Corpuscular HGB CONC 32.2 g/dL (32.0-36.0); Mean Corpuscular Hemoglobin 31.7 pg (27.0-31.0); Mean Corpuscular Volume 98.6 fL (78.0-98.0); Mean Platelet Volume 6.8 fL (7.4-10.4); Platelet Count 302 thou/uL (130-400); RBC Distribution Width 12.1 % (11.5-14.5); Red Blood Cell (RBC) Count 4.71 mill/uL (4.70-6.10)
[2020-09-25 21:46] LABS: ALT (SGPT) 18 U/L (8-55); AST (SGOT) 18 U/L (5-34); Albumin 3.9 g/dL (3.5-5.0); Alkaline Phosphatase 105 U/L (40-110); BUN (Urea Nitrogen) 14 mg/dL (8.9-20.6); Bilirubin, Total 0.3 mg/dL (0.2-1.2); Calc. Creatinine Clearance 0 mL/min (70-130); Calcium 9.2 mg/dL (7.8-10.44); Globulin 3.4 g/dL (2.4-3.5); Glucose 109 mg/dL (70-105); Protein, Total 7.3 g/dL (6.0-8.3)
[2020-09-25 21:57] LABS: Chloride 97 mmol/L (98-107); Potassium 4.5 mmol/L (3.5-5.1); Sodium 142 mmol/L (136-145)
[2020-09-25 22:00] LABS: Anion Gap 15 mmol/L (10-20); Carbon Dioxide 35 mmol/L (22-29)
[2020-09-25] MEDS ORDERED: Acetaminophen 500 MG TAB ONE (22:34)
[2020-09-25] MEDS ORDERED: Ondansetron ODT 4 MG TAB PO PRN (22:38)
[2020-09-25] MEDS ORDERED: Ondansetron PF 4 MG/2 ML Vial IVP PRN (22:38)
[2020-09-25] MEDS ORDERED: Benzonatate 100 MG CAP PO PRN (23:11)
[2020-09-25] MEDS ORDERED: guaiFENesin ER 600 MG TAB PO SCH (23:30)
[2020-09-25 23:54] VITALS: BMI 23.9
[2020-09-25] MEDS ORDERED: Albuterol 200 PUFF (6.7GM INHALER) INH PRN (23:55)
[2020-09-25] MEDS ORDERED: Cefepime 2 GM in Sodium Chloride 0.9% 100 ML IVPB SCH (23:59)
[2020-09-26 00:21] LABS: SARS-CoV-2 NAA Rapid Test Not Detected (NotDetected)
[2020-09-26] MEDS ORDERED: Lactated Ringer's 1,000 ML IV SCH (00:30)
[2020-09-26] MEDS: Nicotine 14 MG PATCH TD SCH ×2 (00:56→23:19)
[2020-09-26 03:32] LABS: #Lymphocytes 0.4 thou/uL (1.20-3.40); #Neutrophils 8.3 thou/uL (1.40-6.50); %Eosinophils 0.3 % (0.0-10.0); %Monocytes 0.4 % (0.0-10.0); %Neutrophils 95.4 % (42.0-75.0); Hemoglobin 14.8 g/dL (14.0-18.0); Mean Corpuscular HGB CONC 30.4 g/dL (32.0-36.0); Mean Corpuscular Hemoglobin 29.8 pg (27.0-31.0); Mean Corpuscular Volume 97.9 fL (78.0-98.0); Mean Platelet Volume 7.1 fL (7.4-10.4); Platelet Count 311 thou/uL (130-400); Red Blood Cell (RBC) Count 4.97 mill/uL (4.70-6.10); White Blood Cell (WBC) Count 8.7 thou/uL (4.8-10.8)
[2020-09-26 03:50] LABS: Phosphorus 2.9 mg/dL (2.3-4.7)
[2020-09-26 03:57] LABS: Anion Gap 14 mmol/L (10-20); BUN (Urea Nitrogen) 14 mg/dL (8.9-20.6); Calc. Creatinine Clearance 123 mL/min (70-130); Calcium 9.3 mg/dL (7.8-10.44); Carbon Dioxide 35 mmol/L (22-29); Chloride 94 mmol/L (98-107); Glucose 178 mg/dL (70-105); Magnesium 2.5 mg/dL (1.6-2.6); Potassium 4.7 mmol/L (3.5-5.1); Sodium 138 mmol/L (136-145)
[2020-09-26] MEDS: Budesonide 0.5 MG/2 ML NEB NEB SCH ×2 (06:37→18:06)
[2020-09-26] MEDS: Arformoterol 15 MCG/2 ML NEB NEB SCH ×2 (06:37→18:07)
[2020-09-26] MEDS: guaiFENesin ER 600 MG TAB PO SCH ×2 (08:45→20:47)
[2020-09-26] MEDS: Lisinopril 5 MG TAB PO SCH (08:45)
[2020-09-26] MEDS: predniSONE 20 MG TAB PO SCH (08:46)
[2020-09-26] MEDS: Enoxaparin Sodium 40 MG/0.4 ML SYRINGE SC SCH (08:46)
[2020-09-26] MEDS: Atorvastatin Calcium 10 MG TAB PO SCH (20:47)
[2020-09-27 03:54] LABS: #Lymphocytes 1.6 thou/uL (1.20-3.40); #Monocytes 1.3 thou/uL (0.11-0.59); #Neutrophils 8.5 thou/uL (1.40-6.50); %Basophils 0.1 % (0.0-1.0); %Eosinophils 0.2 % (0.0-10.0); %Lymphocytes 13.8 % (21.0-51.0); %Monocytes 11.5 % (0.0-10.0); %Neutrophils 74.3 % (42.0-75.0); Hemoglobin 13.5 g/dL (14.0-18.0); Mean Corpuscular HGB CONC 30.4 g/dL (32.0-36.0); Mean Corpuscular Hemoglobin 29.9 pg (27.0-31.0); Mean Corpuscular Volume 98.3 fL (78.0-98.0); Mean Platelet Volume 7.3 fL (7.4-10.4); Platelet Count 312 thou/uL (130-400); RBC Distribution Width 12.3 % (11.5-14.5); White Blood Cell (WBC) Count 11.5 thou/uL (4.8-10.8)
[2020-09-27 04:16] LABS: Anion Gap 10 mmol/L (10-20); BUN (Urea Nitrogen) 15 mg/dL (8.9-20.6); Calc. Creatinine Clearance 128 mL/min (70-130); Calcium 9.5 mg/dL (7.8-10.44); Carbon Dioxide 37 mmol/L (22-29); Chloride 96 mmol/L (98-107); Glucose 98 mg/dL (70-105); Sodium 139 mmol/L (136-145)
[2020-09-27] MEDS: Arformoterol 15 MCG/2 ML NEB NEB SCH ×2 (08:21→18:46)
[2020-09-27] MEDS: Budesonide 0.5 MG/2 ML NEB NEB SCH ×2 (08:22→18:46)
[2020-09-27] MEDS: Fluticasone Propionate Nasal Spray 16 gm Bottle NASAL SCH (09:30)
[2020-09-27] MEDS: Enoxaparin Sodium 40 MG/0.4 ML SYRINGE SC SCH (09:30)
[2020-09-27] MEDS: guaiFENesin ER 600 MG TAB PO SCH ×2 (09:32→20:30)
[2020-09-27] MEDS: Lisinopril 5 MG TAB PO SCH (09:32)
[2020-09-27] MEDS: predniSONE 20 MG TAB PO SCH (09:33)
[2020-09-27] MEDS: Atorvastatin Calcium 10 MG TAB PO SCH (20:30)
[2020-09-27] MEDS: Montelukast Sodium 10 mg Tablet PO SCH (20:30)
[2020-09-27] MEDS: Nicotine 14 MG PATCH TD SCH (22:19)
[2020-09-28 03:39] LABS: #Lymphocytes 1.5 thou/uL (1.20-3.40); #Monocytes 1.1 thou/uL (0.11-0.59); %Basophils 0.4 % (0.0-1.0); %Eosinophils 0.1 % (0.0-10.0); %Lymphocytes 15.7 % (21.0-51.0); %Monocytes 11.1 % (0.0-10.0); %Neutrophils 72.8 % (42.0-75.0); Hemoglobin 13.4 g/dL (14.0-18.0); Mean Corpuscular HGB CONC 31.7 g/dL (32.0-36.0); Mean Corpuscular Hemoglobin 31.4 pg (27.0-31.0); Mean Corpuscular Volume 99.2 fL (78.0-98.0); Mean Platelet Volume 7.3 fL (7.4-10.4); Platelet Count 290 thou/uL (130-400); RBC Distribution Width 12.2 % (11.5-14.5); Red Blood Cell (RBC) Count 4.27 mill/uL (4.70-6.10); White Blood Cell (WBC) Count 9.7 thou/uL (4.8-10.8)
[2020-09-28 04:00] LABS: BUN (Urea Nitrogen) 11 mg/dL (8.9-20.6); Calc. Creatinine Clearance 136 mL/min (70-130); Calcium 9.2 mg/dL (7.8-10.44); Glucose 81 mg/dL (70-105)
[2020-09-28 04:09] LABS: Anion Gap 14 mmol/L (10-20); Carbon Dioxide 35 mmol/L (22-29); Chloride 95 mmol/L (98-107); Potassium 4.1 mmol/L (3.5-5.1); Sodium 140 mmol/L (136-145)
[2020-09-28] MEDS: Budesonide 0.5 MG/2 ML NEB NEB SCH ×2 (08:36→18:40)
[2020-09-28] MEDS: Arformoterol 15 MCG/2 ML NEB NEB SCH ×2 (08:36→18:40)
[2020-09-28] MEDS: predniSONE 20 MG TAB PO SCH (09:04)
[2020-09-28] MEDS: guaiFENesin ER 600 MG TAB PO SCH ×2 (09:04→20:21)
[2020-09-28] MEDS: Enoxaparin Sodium 40 MG/0.4 ML SYRINGE SC SCH (09:05)
[2020-09-28] MEDS: Lisinopril 5 MG TAB PO SCH (09:05)
[2020-09-28] MEDS: Fluticasone Propionate Nasal Spray 16 gm Bottle NASAL SCH (09:06)
[2020-09-28] MEDS: Atorvastatin Calcium 10 MG TAB PO SCH (20:21)
[2020-09-28] MEDS: Montelukast Sodium 10 mg Tablet PO SCH (20:22)
[2020-09-28] MEDS: Nicotine 14 MG PATCH TD SCH (20:22)
[2020-09-29 06:32] LABS: #Basophils 0.1 thou/uL (0.0-0.2); #Lymphocytes 1.8 thou/uL (1.20-3.40); #Neutrophils 6.9 thou/uL (1.40-6.50); %Basophils 0.6 % (0.0-1.0); %Eosinophils 0.2 % (0.0-10.0); %Monocytes 10.3 % (0.0-10.0); %Neutrophils 70.9 % (42.0-75.0); Hemoglobin 13.3 g/dL (14.0-18.0); Mean Corpuscular HGB CONC 31.6 g/dL (32.0-36.0); Mean Corpuscular Hemoglobin 31.5 pg (27.0-31.0); Mean Corpuscular Volume 99.5 fL (78.0-98.0); Mean Platelet Volume 7.5 fL (7.4-10.4); Platelet Count 295 thou/uL (130-400); RBC Distribution Width 12.2 % (11.5-14.5); Red Blood Cell (RBC) Count 4.23 mill/uL (4.70-6.10); White Blood Cell (WBC) Count 9.8 thou/uL (4.8-10.8)
[2020-09-29 06:52] LABS: BUN (Urea Nitrogen) 13 mg/dL (8.9-20.6); Calc. Creatinine Clearance 132 mL/min (70-130); Calcium 8.9 mg/dL (7.8-10.44); Glucose 100 mg/dL (70-105)
[2020-09-29 07:01] LABS: Anion Gap 13 mmol/L (10-20); Carbon Dioxide 34 mmol/L (22-29); Chloride 97 mmol/L (98-107); Potassium 3.6 mmol/L (3.5-5.1); Sodium 140 mmol/L (136-145)
[2020-09-29] MEDS: Arformoterol 15 MCG/2 ML NEB NEB SCH ×2 (07:12→18:34)
[2020-09-29] MEDS: Budesonide 0.5 MG/2 ML NEB NEB SCH ×2 (07:13→18:34)
[2020-09-29] MEDS: Enoxaparin Sodium 40 MG/0.4 ML SYRINGE SC SCH (08:00)
[2020-09-29] MEDS: Lisinopril 5 MG TAB PO SCH (08:01)
[2020-09-29] MEDS: Fluticasone Propionate Nasal Spray 16 gm Bottle NASAL SCH (08:01)
[2020-09-29] MEDS: guaiFENesin ER 600 MG TAB PO SCH ×2 (08:02→21:03)
[2020-09-29] MEDS: predniSONE 20 MG TAB PO SCH (08:02)
[2020-09-29] MEDS: Atorvastatin Calcium 10 MG TAB PO SCH (21:03)
[2020-09-29] MEDS: Montelukast Sodium 10 mg Tablet PO SCH (21:04)
[2020-09-29] MEDS: Acetaminophen 325 MG TAB PO PRN (21:04)
[2020-09-29] MEDS: Nicotine 14 MG PATCH TD SCH (22:15)
[2020-09-30] MEDS: Acetaminophen 325 MG TAB PO PRN (06:11)
[2020-09-30] MEDS: Arformoterol 15 MCG/2 ML NEB NEB SCH ×2 (07:00→18:32)
[2020-09-30] MEDS: Budesonide 0.5 MG/2 ML NEB NEB SCH ×2 (07:01→18:32)
[2020-09-30] MEDS: guaiFENesin ER 600 MG TAB PO SCH ×2 (07:47→20:26)
[2020-09-30] MEDS: Lisinopril 5 MG TAB PO SCH (07:48)
[2020-09-30] MEDS: predniSONE 20 MG TAB PO SCH (07:48)
[2020-09-30] MEDS: Fluticasone Propionate Nasal Spray 16 gm Bottle NASAL SCH (07:51)
[2020-09-30] MEDS: Enoxaparin Sodium 40 MG/0.4 ML SYRINGE SC SCH (07:52)
[2020-09-30] MEDS: Atorvastatin Calcium 10 MG TAB PO SCH (20:26)
[2020-09-30] MEDS: Montelukast Sodium 10 mg Tablet PO SCH (20:26)
[2020-09-30] MEDS: Nicotine 14 MG PATCH TD SCH (20:31)
[2020-10-01] MEDS: Arformoterol 15 MCG/2 ML NEB NEB SCH ×2 (06:55→19:13)
[2020-10-01] MEDS: Budesonide 0.5 MG/2 ML NEB NEB SCH ×2 (06:56→19:14)
[2020-10-01] MEDS: predniSONE 20 MG TAB PO SCH ×2 (08:10→08:26)
[2020-10-01] MEDS: guaiFENesin ER 600 MG TAB PO SCH ×2 (08:10→20:49)
[2020-10-01] MEDS: Lisinopril 5 MG TAB PO SCH (08:10)
[2020-10-01] MEDS: Enoxaparin Sodium 40 MG/0.4 ML SYRINGE SC SCH (08:10)
[2020-10-01] MEDS: Fluticasone Propionate Nasal Spray 16 gm Bottle NASAL SCH (08:11)
[2020-10-01] MEDS: Nicotine 14 MG PATCH TD SCH (20:49)
[2020-10-01] MEDS: Montelukast Sodium 10 mg Tablet PO SCH (20:49)
[2020-10-01] MEDS: Atorvastatin Calcium 10 MG TAB PO SCH (20:49)
[2020-10-02] MEDS: Arformoterol 15 MCG/2 ML NEB NEB SCH (07:38)
[2020-10-02] MEDS: Budesonide 0.5 MG/2 ML NEB NEB SCH (07:39)
[2020-10-02] MEDS: Fluticasone Propionate Nasal Spray 16 gm Bottle NASAL SCH (08:10)
[2020-10-02] MEDS: guaiFENesin ER 600 MG TAB PO SCH (08:10)
[2020-10-02] MEDS: predniSONE 20 MG TAB PO SCH (08:10)
[2020-10-02] MEDS: Lisinopril 5 MG TAB PO SCH (08:10)
[2020-10-02] MEDS: Enoxaparin Sodium 40 MG/0.4 ML SYRINGE SC SCH (08:11)
[2020-10-02 14:18] VITALS: BP 118/74; TEMP 97.4
== END 2020-10-02 14:56 | disposition home or self-care (01) | DRG 189 ==
LOC: ERS 20:45 → IMCU/EMU 23:12 → T4-A 09-28 17:15 → UNDODISIN 10-02 14:20
PROVIDERS: ADMIT Family Medicine; ATTEND Family Medicine
PROC: 5A09457 Assistance with Respiratory Ventilation, 24-96 Consecutive Hours, Continuous Positive Airway Pressure (ICD-10-PCS; principal; 2020-09-25)
DX: J96.22 Acute and chronic respiratory failure with hypercapnia (principal); J44.1 Chronic obstructive pulmonary disease with (acute) exacerbation; Z20.822 Contact with and (suspected) exposure to COVID-19; E87.4 Mixed disorder of acid-base balance; I10 Essential (primary) hypertension; J96.21 Acute and chronic respiratory failure with hypoxia; F17.210 Nicotine dependence, cigarettes, uncomplicated; G47.00 Insomnia, unspecified; R53.82 Chronic fatigue, unspecified; J40 Bronchitis, not specified as acute or chronic; Z99.81 Dependence on supplemental oxygen; Z88.0 Allergy status to penicillin; Z79.51 Long term (current) use of inhaled steroids; Z79.899 Other long term (current) drug therapy; Z90.2 Acquired absence of lung [part of]; Z90.49 Acquired absence of other specified parts of digestive tract
CPT/HCPCS: 0240U; 36415; 36600; 71045; 80048; 80053; 82805; 83735; 84100; 84145; 84484; 85025; 93005; 94640; 94644; 94660; J0692; J1650; J3490; J7512; J7620; J7626